=== PATIENT | male | born 1955 | race Caucasian/White ===

== ENCOUNTER → 2017-12-20 | Outpatient (CLI) | payer OTHER ==
[~2017-12-20] MED LIST: AMAN100 PO; AMOCLA875 PO; AMOX500 PO; BETH25 PO; CEPH250A PO; CEPH500 PO; CHLO50 PO; CHOL10002 PO; CIPR500 PO; Crutch1 EACH MISC; DIVA500EC; DIVA500ER PO; DOXY100 PO; ERYT1OIN BOTHEYES; ESCI10 PO; FAMO20 PO; FERR325 PO; FURO20 PO; FURO40 PO; HYDACE5 PO; LEVSOD25 PO; LISI5 PO; MAGCIT300 PO; MAGOXI400 PO; METF500 PO; Norco 5-325 Ta1 EACH PO; OLAN10 PO; OLAN10A MM; OLAN2.5; OLAN7.5 PO; PALI6TA PO; POLY17UD PO; POTA10T; POTA10T PO; POTA20PAC PO; POTCHL20ER PO; PRAV20 PO; Percocet 5-3251 EACH PO; ROSU10TA; ROSU10TA PO; SERT25; SERT50 PO; SULTRIDS PO; TAMS.4ER PO; WARF10 PO; XARELTO10 MG; XARELTO10 MG PO; Zestril PO; [UNRECOGNIZED DRUG - CODE]
[2017-12-20 11:23] LABS: Hematocrit 42.4 % (37.0-53.0); Mean Corpuscular HGB 29.5 pg (26.0-34.0); Mean Corpuscular Volume 89 fL (80-100); Mean Platelet Volume 10.2 fL (9.1-12.4); Platelet Count 225 K/mm3 (150-400); RDW Coefficient Variation 14.1 % (11.7-14.2); RDW Standard Deviation 45.7 fL (35.1-46.3); Red Blood Cell Count 4.75 M/mm3 (4.30-5.90); White Blood Cell Count 6.72 K/mm3 (4.00-11.30)
[2017-12-20 12:47] LABS: Anion Gap 9 mmol/L (6-16); Blood Urea Nitrogen 13 mg/dL (8-24); Bun/Creatinine Ratio 19.6 (12.0-20.0); CO2, Blood 24 mmol/L (21-32); Calcium, Blood 8.5 mg/dL (8.5-10.1); Chloride, Blood 109 mmol/L (98-108); Creatinine, Blood 0.66 mg/dL (0.60-1.20); Glomerular Filtration Rate >60 (60-); Glucose, Blood 151 mg/dL (70-99); Potassium, Blood 3.7 mmol/L (3.5-5.5); Sodium, Blood 142 mmol/L (136-145)
== END | disposition home or self-care (01) ==
LOC: LAB UVN 11:06 → EDSTATUS 12:01
PROVIDERS: Family Medicine
DX: R06.02 Shortness of breath (principal)
CPT/HCPCS: 80048; 85027

== ENCOUNTER 2018-05-09 18:51 | Inpatient (IN) | payer OTHER ==
[~2018-05-09] VITALS: Ht 172.7 cm; Wt 117.7 kg
[~2018-05-09 18:51] MED LIST changes: -METF500 PO; +METF850 PO
[2018-05-09 19:21] LABS: BASOPHILS ABSOLUTE AUTO 0.04 K/mm3 (0.00-0.23); BASOPHILS PERCENT AUTO 0 % (0-2); EOSINOPHILS ABSOLUTE AUTO 0.07 K/mm3 (0.00-0.68); EOSINOPHILS PERCENT AUTO 1 % (0-6); Hematocrit 32.9 % (37.0-53.0); Hemoglobin 10.9 g/dL (13.5-17.5); IMMATURE GRAN ABSOLUTE AUTO 0.03 K/mm3 (0.00-0.10); IMMATURE GRAN PERCENT AUTO 0 % (0-1); LYMPHOCYTES ABSOLUTE AUTO 1.79 K/mm3 (0.84-5.20); LYMPHOCYTES PERCENT AUTO 17 % (21-46); MONOCYTES ABSOLUTE AUTO 0.97 K/mm3 (0.16-1.47); MONOCYTES PERCENT AUTO 9 % (4-13); Mean Corpuscular HGB 29.7 pg (26.0-34.0); Mean Corpuscular HGB Conc 33.1 g/dL (31.5-36.5); Mean Corpuscular Volume 90 fL (80-100); Mean Platelet Volume 9.6 fL (9.1-12.4); NEUTROPHILS PERCENT AUTO 72 % (41-73); Platelet Count 250 K/mm3 (150-400); RDW Coefficient Variation 14.1 % (11.7-14.2); RDW Standard Deviation 46.1 fL (35.1-46.3); Red Blood Cell Count 3.67 M/mm3 (4.30-5.90)
[2018-05-09 19:34] LABS: International Normalized Ratio 1.19; Prothrombin Time Results 12.1 Sec (9.7-11.5)
[2018-05-09 19:36] LABS: Albumin, Blood 2.3 g/dL (3.4-5.0); Albumin/Globulin Ratio 0.5 (0.8-1.8); Bilirubin, Total 0.4 mg/dL (0.1-1.0); Calcium, Blood 7.8 mg/dL (8.5-10.1); Creatinine, Blood 1.42 mg/dL (0.60-1.20); Globulin, Blood 4.7 g/dL (2.2-4.0); Potassium, Blood 3.6 mmol/L (3.5-5.5)
[2018-05-10 05:24] LABS: Hematocrit 33.3 % (37.0-53.0); Hemoglobin 11.1 g/dL (13.5-17.5); Mean Corpuscular HGB 29.8 pg (26.0-34.0); Mean Corpuscular HGB Conc 33.3 g/dL (31.5-36.5); Mean Corpuscular Volume 90 fL (80-100); Mean Platelet Volume 9.3 fL (9.1-12.4); Platelet Count 244 K/mm3 (150-400); RDW Coefficient Variation 14.2 % (11.7-14.2); RDW Standard Deviation 46.4 fL (35.1-46.3); Red Blood Cell Count 3.72 M/mm3 (4.30-5.90); White Blood Cell Count 9.17 K/mm3 (4.00-11.30)
[2018-05-10 05:54] LABS: Albumin, Blood 2.3 g/dL (3.4-5.0); Albumin/Globulin Ratio 0.5 (0.8-1.8); Bilirubin, Total 0.5 mg/dL (0.1-1.0); Bun/Creatinine Ratio 12.2 (12.0-20.0); Calcium, Blood 8.1 mg/dL (8.5-10.1); Creatinine, Blood 1.47 mg/dL (0.60-1.20); Globulin, Blood 4.7 g/dL (2.2-4.0); Potassium, Blood 3.8 mmol/L (3.5-5.5)
[2018-05-10 07:50] LABS: Source, Urine Catheter
[2018-05-10 08:15] LABS: Appearance, Urine Hazy (Clear); Bilirubin, Urine Neg (Neg); Blood, Urine 5+ (Neg); Color, Urine Yellow (P-Yellow); Glucose Qualitative, Urine Neg (Neg); Ketones, Urine Neg (Neg); Leukocyte Esterase, Urine 3+ (Neg); Nitrite, Urine Neg (Neg); Protein, Urine 1+ (Neg); Specific Gravity, Urine 1.005 (1.003-1.022); Urobilinogen, Urine NORM (Normal)
[2018-05-10 08:26] LABS: Bacteria Mod /hpf; Squamous Epithelial Cells Rare /hpf (Few); White Blood Cells, Urine 50-100 /hpf (0-5)
[2018-05-11 04:16] LABS: BASOPHILS ABSOLUTE AUTO 0.05 K/mm3 (0.00-0.23); BASOPHILS PERCENT AUTO 1 % (0-2); EOSINOPHILS ABSOLUTE AUTO 0.29 K/mm3 (0.00-0.68); EOSINOPHILS PERCENT AUTO 3 % (0-6); Hemoglobin 11.7 g/dL (13.5-17.5); IMMATURE GRAN ABSOLUTE AUTO 0.03 K/mm3 (0.00-0.10); IMMATURE GRAN PERCENT AUTO 0 % (0-1); LYMPHOCYTES ABSOLUTE AUTO 2.68 K/mm3 (0.84-5.20); LYMPHOCYTES PERCENT AUTO 25 % (21-46); MONOCYTES ABSOLUTE AUTO 0.89 K/mm3 (0.16-1.47); MONOCYTES PERCENT AUTO 8 % (4-13); Mean Corpuscular HGB Conc 32.5 g/dL (31.5-36.5); Mean Corpuscular Volume 89 fL (80-100); Mean Platelet Volume 9.7 fL (9.1-12.4); NEUTROPHILS ABSOLUTE AUTO 6.76 K/mm3 (1.96-9.15); NEUTROPHILS PERCENT AUTO 63 % (41-73); Platelet Count 271 K/mm3 (150-400); RDW Standard Deviation 45.6 fL (35.1-46.3); Red Blood Cell Count 4.03 M/mm3 (4.30-5.90)
[2018-05-11 04:40] LABS: Albumin, Blood 2.4 g/dL (3.4-5.0); Anion Gap 9 mmol/L (6-16); Blood Urea Nitrogen 19 mg/dL (8-24); Bun/Creatinine Ratio 15.7 (12.0-20.0); CO2, Blood 27 mmol/L (21-32); Calcium, Blood 8.3 mg/dL (8.5-10.1); Chloride, Blood 104 mmol/L (98-108); Creatinine, Blood 1.21 mg/dL (0.60-1.20); Glomerular Filtration Rate >60 (60-); Glucose, Blood 113 mg/dL (70-99); Phosphorus, Blood 3.8 mg/dL (2.5-4.9); Potassium, Blood 3.3 mmol/L (3.5-5.5); Sodium, Blood 140 mmol/L (136-145)
[2018-05-11 04:53] LABS: Percent Saturation 34.7 % (20.0-50.0)
[2018-05-12 05:04] LABS: Albumin, Blood 2.4 g/dL (3.4-5.0); Anion Gap 9 mmol/L (6-16); Blood Urea Nitrogen 22 mg/dL (8-24); Bun/Creatinine Ratio 18.5 (12.0-20.0); CO2, Blood 26 mmol/L (21-32); Calcium, Blood 8.4 mg/dL (8.5-10.1); Chloride, Blood 103 mmol/L (98-108); Creatinine, Blood 1.19 mg/dL (0.60-1.20); Glomerular Filtration Rate >60 (60-); Glucose, Blood 126 mg/dL (70-99); Phosphorus, Blood 3.3 mg/dL (2.5-4.9); Potassium, Blood 3.2 mmol/L (3.5-5.5); Sodium, Blood 138 mmol/L (136-145)
[2018-05-13] MEDS ORDERED: GABA300 PO (10:10)
[2018-05-13] MEDS ORDERED: TAMS.4ER PO (10:11)
[2018-05-13] MEDS ORDERED: TRAM50 PO (10:11)
[2018-05-13] MEDS ORDERED: Amoxicillin500 MG PO (10:12)
[2018-05-13] MEDS ORDERED: Acidophilus La100 GM PO (10:12)
== END 2018-05-13 12:24 | DRG 871 ==
LOC: ER 18:51 → MEDS 21:44 → EDPENDDIS 05-13 10:01 → ENPENDDIS 05-13 10:01 → MEDS 05-13 12:24
PROVIDERS: Emergency Medicine; Family Medicine; Internal Medicine
DX: A41.9 Sepsis, unspecified organism (principal); G92 Toxic encephalopathy; N39.0 Urinary tract infection, site not specified; N13.1 Hydronephrosis with ureteral stricture, not elsewhere classified; N17.9 Acute kidney failure, unspecified; D63.8 Anemia in other chronic diseases classified elsewhere; E87.6 Hypokalemia; F20.9 Schizophrenia, unspecified; R65.20 Severe sepsis without septic shock; H10.9 Unspecified conjunctivitis; J44.9 Chronic obstructive pulmonary disease, unspecified; E11.65 Type 2 diabetes mellitus with hyperglycemia; E03.9 Hypothyroidism, unspecified; E11.40 Type 2 diabetes mellitus with diabetic neuropathy, unspecified; F31.9 Bipolar disorder, unspecified; R09.02 Hypoxemia; E66.9 Obesity, unspecified; Z86.718 Personal history of other venous thrombosis and embolism; Z79.01 Long term (current) use of anticoagulants; Z79.84 Long term (current) use of oral hypoglycemic drugs; Z79.899 Other long term (current) drug therapy; Z87.891 Personal history of nicotine dependence
CPT/HCPCS: 36415; 71045; 76770; 80053; 80069; 81001; 82607; 82728; 82746; 82947; 83540; 83550; 83605; 84132; 85025; 85027; 85610; 85730; 87086; 93005; 93010; 94760; 96365; 99285-25; J0696; J0713; J1650; J7120

== ENCOUNTER 2018-07-04 23:25 | Inpatient (IN) | payer OTHER ==
[~2018-07-04] VITALS: Ht 172.7 cm; Wt 117.8 kg
[~2018-07-04 23:25] MED LIST changes: +ACET325 PO; +Acidophilus La100 GM PO; +Amoxicillin500 MG PO; +Cipro500 MG PO; +GABA300 PO; +TRAM50 PO; +Tylenol325 MG PO
[2018-07-04 23:48] LABS: BASOPHILS ABSOLUTE AUTO 0.03 K/mm3 (0.00-0.23); BASOPHILS PERCENT AUTO 0 % (0-2); EOSINOPHILS PERCENT AUTO 0 % (0-6); Hemoglobin 13.4 g/dL (13.5-17.5); IMMATURE GRAN ABSOLUTE AUTO 0.03 K/mm3 (0.00-0.10); IMMATURE GRAN PERCENT AUTO 0 % (0-1); LYMPHOCYTES ABSOLUTE AUTO 0.99 K/mm3 (0.84-5.20); LYMPHOCYTES PERCENT AUTO 11 % (21-46); MONOCYTES ABSOLUTE AUTO 0.44 K/mm3 (0.16-1.47); MONOCYTES PERCENT AUTO 5 % (4-13); Mean Corpuscular HGB Conc 33.5 g/dL (31.5-36.5); Mean Corpuscular Volume 90 fL (80-100); Mean Platelet Volume 9.8 fL (9.1-12.4); NEUTROPHILS PERCENT AUTO 84 % (41-73); Platelet Count 136 K/mm3 (150-400); RDW Coefficient Variation 14.9 % (11.7-14.2); RDW Standard Deviation 49.6 fL (35.1-46.3); Red Blood Cell Count 4.47 M/mm3 (4.30-5.90); White Blood Cell Count 9.19 K/mm3 (4.00-11.30)
[2018-07-05 00:04] LABS: Alanine Aminotransfer (ALT/SGP 22 U/L (12-78); Albumin, Blood 2.4 g/dL (3.4-5.0); Albumin/Globulin Ratio 0.5 (0.8-1.8); Alk Phos 73 U/L (50-136); Anion Gap 11 mmol/L (6-16); Aspartate Aminotrans (AST/SGOT 42 U/L (12-37); Bilirubin, Total 0.5 mg/dL (0.1-1.0); Blood Urea Nitrogen 10 mg/dL (8-24); Bun/Creatinine Ratio 11.8 (12.0-20.0); CO2, Blood 21 mmol/L (21-32); Calcium, Blood 7.7 mg/dL (8.5-10.1); Chloride, Blood 105 mmol/L (98-108); Creatinine, Blood 0.85 mg/dL (0.60-1.20); Globulin, Blood 4.7 g/dL (2.2-4.0); Glomerular Filtration Rate >60 (60-); Glucose, Blood 230 mg/dL (70-99); Potassium, Blood 3.8 mmol/L (3.5-5.5); Sodium, Blood 137 mmol/L (136-145); Total Protein, Blood 7.1 g/dL (6.4-8.2)
[2018-07-05 01:19] LABS: Source, Urine Catheter
[2018-07-05 01:21] LABS: Bilirubin, Urine Neg (Neg); Blood, Urine 5+ (Neg); Glucose Qualitative, Urine Neg (Neg); Ketones, Urine Neg (Neg); Leukocyte Esterase, Urine 1+ (Neg); Nitrite, Urine Neg (Neg); Protein, Urine Neg (Neg); Specific Gravity, Urine 1.005 (1.003-1.022); Urobilinogen, Urine NORM (Normal)
[2018-07-05] MEDS ORDERED: Ceftriaxone1 G2 IM (01:23)
[2018-07-05 01:34] LABS: Appearance, Urine Hazy (Clear); Color, Urine Other (P-Yellow)
[2018-07-05 01:36] LABS: Bacteria Few /hpf; Red Blood Cells, Urine 50-100 /hpf (0-2); Squamous Epithelial Cells Not Seen /hpf (Few)
[2018-07-05 04:36] LABS: U Amphetamine Screen Not Detected; U Barbituate Screen Not Detected; U Benzodiazapine Screen Not Detected; U Buprenorphine Screen Not Detected; U Cannabinoids Screen Not Detected; U Cocaine Screen Not Detected; U Methadone Screen Not Detected; U Methamphetamine Screen Not Detected; U Opiates Screen Not Detected; U Oxycodone Screen Not Detected; U Phencyclidine Screen Not Detected; U Propoxyphene Screen Not Detected
[2018-07-05 11:51] LABS: Hematocrit 38.8 % (37.0-53.0); Hemoglobin 12.4 g/dL (13.5-17.5); Mean Corpuscular Volume 91 fL (80-100); Mean Platelet Volume 9.6 fL (9.1-12.4); Platelet Count 118 K/mm3 (150-400); RDW Coefficient Variation 15.1 % (11.7-14.2); RDW Standard Deviation 50.5 fL (35.1-46.3); Red Blood Cell Count 4.27 M/mm3 (4.30-5.90); White Blood Cell Count 7.42 K/mm3 (4.00-11.30)
[2018-07-05 12:21] LABS: Alanine Aminotransfer (ALT/SGP 21 U/L (12-78); Albumin, Blood 2.2 g/dL (3.4-5.0); Albumin/Globulin Ratio 0.5 (0.8-1.8); Alk Phos 60 U/L (50-136); Anion Gap 10 mmol/L (6-16); Aspartate Aminotrans (AST/SGOT 30 U/L (12-37); Bilirubin, Total 0.4 mg/dL (0.1-1.0); Blood Urea Nitrogen 10 mg/dL (8-24); Bun/Creatinine Ratio 11.5 (12.0-20.0); CO2, Blood 22 mmol/L (21-32); Calcium, Blood 7.3 mg/dL (8.5-10.1); Chloride, Blood 108 mmol/L (98-108); Creatinine, Blood 0.87 mg/dL (0.60-1.20); Globulin, Blood 4.1 g/dL (2.2-4.0); Glomerular Filtration Rate >60 (60-); Glucose, Blood 124 mg/dL (70-99); Potassium, Blood 2.8 mmol/L (3.5-5.5); Sodium, Blood 140 mmol/L (136-145); Total Protein, Blood 6.3 g/dL (6.4-8.2)
[2018-07-06 04:09] LABS: BASOPHILS ABSOLUTE AUTO 0.05 K/mm3 (0.00-0.23); BASOPHILS PERCENT AUTO 1 % (0-2); EOSINOPHILS ABSOLUTE AUTO 0.15 K/mm3 (0.00-0.68); EOSINOPHILS PERCENT AUTO 2 % (0-6); Hematocrit 38.3 % (37.0-53.0); Hemoglobin 12.5 g/dL (13.5-17.5); IMMATURE GRAN ABSOLUTE AUTO 0.04 K/mm3 (0.00-0.10); IMMATURE GRAN PERCENT AUTO 1 % (0-1); LYMPHOCYTES ABSOLUTE AUTO 1.79 K/mm3 (0.84-5.20); LYMPHOCYTES PERCENT AUTO 26 % (21-46); MONOCYTES ABSOLUTE AUTO 0.64 K/mm3 (0.16-1.47); MONOCYTES PERCENT AUTO 9 % (4-13); Mean Corpuscular HGB 29.3 pg (26.0-34.0); Mean Corpuscular HGB Conc 32.6 g/dL (31.5-36.5); Mean Corpuscular Volume 90 fL (80-100); Mean Platelet Volume 10.3 fL (9.1-12.4); NEUTROPHILS ABSOLUTE AUTO 4.23 K/mm3 (1.96-9.15); NEUTROPHILS PERCENT AUTO 61 % (41-73); Platelet Count 150 K/mm3 (150-400); RDW Coefficient Variation 14.9 % (11.7-14.2); RDW Standard Deviation 49.3 fL (35.1-46.3); Red Blood Cell Count 4.26 M/mm3 (4.30-5.90)
[2018-07-06 04:31] LABS: Anion Gap 9 mmol/L (6-16); Blood Urea Nitrogen 13 mg/dL (8-24); Bun/Creatinine Ratio 16.5 (12.0-20.0); CO2, Blood 23 mmol/L (21-32); Calcium, Blood 8.1 mg/dL (8.5-10.1); Chloride, Blood 109 mmol/L (98-108); Creatinine, Blood 0.79 mg/dL (0.60-1.20); Glomerular Filtration Rate >60 (60-); Glucose, Blood 122 mg/dL (70-99); Potassium, Blood 3.2 mmol/L (3.5-5.5); Sodium, Blood 141 mmol/L (136-145)
[2018-07-07 05:02] LABS: Anion Gap 10 mmol/L (6-16); Blood Urea Nitrogen 12 mg/dL (8-24); Bun/Creatinine Ratio 16.1 (12.0-20.0); CO2, Blood 22 mmol/L (21-32); Calcium, Blood 8.1 mg/dL (8.5-10.1); Chloride, Blood 107 mmol/L (98-108); Creatinine, Blood 0.74 mg/dL (0.60-1.20); Glomerular Filtration Rate >60 (60-); Glucose, Blood 106 mg/dL (70-99); Potassium, Blood 3.5 mmol/L (3.5-5.5); Sodium, Blood 139 mmol/L (136-145)
[2018-07-07] MEDS ORDERED: SYNTHROID/LEVOTHROID PO (09:47)
[2018-07-07] MEDS ORDERED: Pedi-Dri 100,0060 GM TOP (09:47)
[2018-07-07] MEDS ORDERED: MERREM1 GM IV (09:48)
[2018-07-07] MEDS ORDERED: Bactrim Ds Tab1 EACH PO (11:22)
== END 2018-07-07 15:18 | DRG 698 ==
LOC: ER 23:25 → ICUW 23:29 → MEDS 07-05 00:42 → PCU 07-05 14:35 → MEDS 07-06 10:47 → ENPENDDIS 07-07 09:00 → MEDS 07-07 15:18
PROVIDERS: Emergency Medicine; Hospitalist; Internal Medicine
DX: T83.518A Infection and inflammatory reaction due to other urinary catheter, initial encounter (principal); G92 Toxic encephalopathy; R65.20 Severe sepsis without septic shock; A41.51 Sepsis due to Escherichia coli [E. coli]; N39.0 Urinary tract infection, site not specified; E86.0 Dehydration; F31.9 Bipolar disorder, unspecified; I10 Essential (primary) hypertension; I73.9 Peripheral vascular disease, unspecified; H10.9 Unspecified conjunctivitis; E78.5 Hyperlipidemia, unspecified; J44.9 Chronic obstructive pulmonary disease, unspecified; Z99.3 Dependence on wheelchair; E11.40 Type 2 diabetes mellitus with diabetic neuropathy, unspecified; E03.9 Hypothyroidism, unspecified; Z86.718 Personal history of other venous thrombosis and embolism; Z79.01 Long term (current) use of anticoagulants; B96.4 Proteus (mirabilis) (morganii) as the cause of diseases classified elsewhere
CPT/HCPCS: 36415; 51702; 71045; 80048; 80053; 81001; 82330; 82947; 83605; 83735; 85025; 85027; 87086; 96361; 96374; 99285-25; J0696; J1650; J2185; J3480; J7030; J7040; J7050

== ENCOUNTER → 2018-09-16 | Outpatient (CLI) | payer OTHER ==
[~2018-09-16] MED LIST changes: +Bactrim Ds Tab1 EACH PO; +Ceftriaxone1 G2 IM; +MERREM1 GM IV; +Pedi-Dri 100,0060 GM TOP; +SYNTHROID/LEVOTHROID PO
[2018-09-16 12:21] LABS: BASOPHILS ABSOLUTE AUTO 0.04 K/mm3 (0.00-0.23); BASOPHILS PERCENT AUTO 1 % (0-2); EOSINOPHILS ABSOLUTE AUTO 0.48 K/mm3 (0.00-0.68); EOSINOPHILS PERCENT AUTO 6 % (0-6); Hematocrit 39.1 % (37.0-53.0); Hemoglobin 12.9 g/dL (13.5-17.5); IMMATURE GRAN ABSOLUTE AUTO 0.03 K/mm3 (0.00-0.10); IMMATURE GRAN PERCENT AUTO 0 % (0-1); LYMPHOCYTES ABSOLUTE AUTO 2.26 K/mm3 (0.84-5.20); LYMPHOCYTES PERCENT AUTO 26 % (21-46); MONOCYTES ABSOLUTE AUTO 0.59 K/mm3 (0.16-1.47); MONOCYTES PERCENT AUTO 7 % (4-13); Mean Corpuscular HGB 29.7 pg (26.0-34.0); Mean Corpuscular Volume 90 fL (80-100); Mean Platelet Volume 9.8 fL (9.1-12.4); NEUTROPHILS PERCENT AUTO 61 % (41-73); Platelet Count 269 K/mm3 (150-400); RDW Coefficient Variation 14.8 % (11.7-14.2); RDW Standard Deviation 49.2 fL (35.1-46.3); Red Blood Cell Count 4.34 M/mm3 (4.30-5.90)
[2018-09-16 12:35] LABS: Anion Gap 9 mmol/L (6-16); Blood Urea Nitrogen 10 mg/dL (8-24); Bun/Creatinine Ratio 14.9 (12.0-20.0); CO2, Blood 26 mmol/L (21-32); Chloride, Blood 103 mmol/L (98-108); Creatinine, Blood 0.67 mg/dL (0.60-1.20); Glomerular Filtration Rate >60 (60-); Glucose, Blood 172 mg/dL (70-99); Potassium, Blood 3.5 mmol/L (3.5-5.5); Sodium, Blood 138 mmol/L (136-145)
== END | disposition home or self-care (01) ==
LOC: EDSTATUS 10:44 → LAB UVN 12:04
PROVIDERS: Family Medicine
DX: L08.9 Local infection of the skin and subcutaneous tissue, unspecified (principal)
CPT/HCPCS: 80048; 85025; 87070; 87205

== ENCOUNTER → 2018-09-19 | Outpatient (CLI) | payer OTHER | END | disposition home or self-care (01) | LOC: LAB UVN 08:12 → EDSTATUS 10:47 | DX: S71.109A Unspecified open wound, unspecified thigh, initial encounter (principal); L02.415 Cutaneous abscess of right lower limb; B95.62 Methicillin resistant Staphylococcus aureus infection as the cause of diseases classified elsewhere; X58.XXXA Exposure to other specified factors, initial encounter | CPT/HCPCS: 87070; 87077; 87147; 87186; 87205 ==

== ENCOUNTER → 2018-10-12 | Outpatient (CLI) | payer OTHER ==
[2018-10-12 14:14] LABS: Source, Urine Clean Catch
[2018-10-12 14:31] LABS: Hematocrit 41.3 % (37.0-53.0); Hemoglobin 13.5 g/dL (13.5-17.5); Mean Corpuscular HGB 29.4 pg (26.0-34.0); Mean Corpuscular HGB Conc 32.7 g/dL (31.5-36.5); Mean Corpuscular Volume 90 fL (80-100); Mean Platelet Volume 10.3 fL (9.1-12.4); Platelet Count 227 K/mm3 (150-400); RDW Coefficient Variation 14.8 % (11.7-14.2); RDW Standard Deviation 49.4 fL (35.1-46.3); Red Blood Cell Count 4.59 M/mm3 (4.30-5.90); White Blood Cell Count 7.82 K/mm3 (4.00-11.30)
[2018-10-12 14:33] LABS: Bilirubin, Urine Neg (Neg); Blood, Urine 5+ (Neg); Glucose Qualitative, Urine 1+ (Neg); Ketones, Urine Neg (Neg); Leukocyte Esterase, Urine 3+ (Neg); Nitrite, Urine Neg (Neg); Protein, Urine 2+ (Neg); Specific Gravity, Urine 1.015 (1.003-1.022); Urobilinogen, Urine 2+ (Normal)
[2018-10-12 14:58] LABS: Appearance, Urine Cloudy (Clear); Color, Urine Yellow (P-Yellow)
[2018-10-12 15:13] LABS: White Blood Cells, Urine TNTC /hpf (0-5)
[2018-10-12 15:14] LABS: Bacteria Many /hpf; Squamous Epithelial Cells Not Seen /hpf (Few)
== END | disposition home or self-care (01) ==
LOC: EDSTATUS 10:56 → LAB UVN 14:13
PROVIDERS: Family Medicine
DX: J44.9 Chronic obstructive pulmonary disease, unspecified (principal); G93.41 Metabolic encephalopathy; N39.0 Urinary tract infection, site not specified; Z86.718 Personal history of other venous thrombosis and embolism
CPT/HCPCS: 81001; 85027; 87077; 87086; 87186

== ENCOUNTER → 2019-01-23 | Outpatient (CLI) | payer OTHER ==
[~2019-01-23] MED LIST changes: +AMOX875 PO; +BISA10S PR; +GABA400 PO; +METF500 PO; +NITR100CA PO; +OLAN10A; +SYNTHROID25 MCG PO; +XARELTO20 MG PO
[2019-01-23 12:54] LABS: Source, Urine Catheter
[2019-01-23 13:06] LABS: Hemoglobin 13.7 g/dL (13.5-17.5); Mean Corpuscular HGB 27.8 pg (26.0-34.0); Mean Corpuscular HGB Conc 31.9 g/dL (31.5-36.5); Mean Corpuscular Volume 87 fL (80-100); Mean Platelet Volume 9.8 fL (9.1-12.4); Platelet Count 277 K/mm3 (150-400); RDW Coefficient Variation 15.4 % (11.7-14.2); RDW Standard Deviation 49.2 fL (35.1-46.3); Red Blood Cell Count 4.92 M/mm3 (4.30-5.90); White Blood Cell Count 7.47 K/mm3 (4.00-11.30)
[2019-01-23 13:07] LABS: Anion Gap 9 mmol/L (6-16); Blood Urea Nitrogen 14 mg/dL (8-24); Bun/Creatinine Ratio 23.5 (12.0-20.0); CO2, Blood 26 mmol/L (21-32); Calcium, Blood 8.7 mg/dL (8.5-10.1); Chloride, Blood 102 mmol/L (98-108); Glomerular Filtration Rate >60 (60-); Glucose, Blood 251 mg/dL (70-99); Potassium, Blood 3.5 mmol/L (3.5-5.5); Sodium, Blood 137 mmol/L (136-145)
[2019-01-23 13:14] LABS: Bilirubin, Urine Neg (Neg); Blood, Urine 5+ (Neg); Glucose Qualitative, Urine 3+ (Neg); Ketones, Urine 1+ (Neg); Leukocyte Esterase, Urine 3+ (Neg); Nitrite, Urine Pos (Neg); Protein, Urine 3+ (Neg); Specific Gravity, Urine 1.025 (1.003-1.022); Urobilinogen, Urine 1+ (Normal)
[2019-01-23 13:52] LABS: Appearance, Urine Turbid (Clear); Color, Urine Yellow (P-Yellow)
[2019-01-23 13:53] LABS: Squamous Epithelial Cells Many /hpf (Few)
[2019-01-23 13:54] LABS: White Blood Cells, Urine TNTC /hpf (0-5)
[2019-01-23 13:55] LABS: Bacteria Mod /hpf
== END ==
LOC: EDSTATUS 10:22 → LAB UVN 12:49
DX: N39.0 Urinary tract infection, site not specified (principal); I73.89 Other specified peripheral vascular diseases; J44.9 Chronic obstructive pulmonary disease, unspecified; G93.41 Metabolic encephalopathy
CPT/HCPCS: 80048; 81001; 85027; 87077; 87086; 87147; 87186

== ENCOUNTER → 2019-02-21 | Outpatient (CLI) | payer OTHER | END | disposition home or self-care (01) | LOC: EDSTATUS 13:18 → LAB UVN 15:19 | DX: S91.302A Unspecified open wound, left foot, initial encounter (principal) | CPT/HCPCS: 87070; 87075; 87077; 87147; 87186; 87205 ==

== ENCOUNTER → 2019-03-08 | Outpatient (CLI) | payer OTHER ==
[2019-03-08 21:24] LABS: Bilirubin, Urine Neg (Neg); Blood, Urine 4+ (Neg); Glucose Qualitative, Urine 1+ (Neg); Ketones, Urine 1+ (Neg); Leukocyte Esterase, Urine 3+ (Neg); Nitrite, Urine Neg (Neg); Protein, Urine 3+ (Neg); Specific Gravity, Urine 1.025 (1.003-1.022); Urobilinogen, Urine NORM (Normal)
[2019-03-08 21:35] LABS: Appearance, Urine Turbid (Clear); Bacteria Many /hpf; Calcium Oxalate Crystals Few /hpf; Color, Urine Yellow (P-Yellow); Squamous Epithelial Cells Rare /hpf (Few); White Blood Cells, Urine TNTC /hpf (0-5)
== END | disposition home or self-care (01) ==
LOC: EDSTATUS 14:54 → LAB UVN 20:20
DX: N39.0 Urinary tract infection, site not specified (principal)
CPT/HCPCS: 81001; 87077; 87086; 87186

== ENCOUNTER 2019-03-11 07:35 | Inpatient (IN) | payer OTHER ==
[~2019-03-11] VITALS: Ht 172.7 cm; Wt 116.3 kg
[~2019-03-11 07:35] MED LIST changes: -AMOX875 PO; -BISA10S PR; -GABA400 PO; -METF500 PO; -NITR100CA PO; -OLAN10A; -SYNTHROID25 MCG PO; -XARELTO20 MG PO
[2019-03-11] MEDS ORDERED: TAMS.4ER PO (08:05)
[2019-03-11] MEDS ORDERED: FURO20 PO (08:05)
[2019-03-11] MEDS ORDERED: METF500 PO (08:06)
[2019-03-11] MEDS ORDERED: OLAN10A (08:06)
[2019-03-11] MEDS ORDERED: XARELTO20 MG PO (08:07)
[2019-03-11] MEDS ORDERED: OLAN7.5 PO (08:07)
[2019-03-11] MEDS ORDERED: SYNTHROID25 MCG PO (08:07)
[2019-03-11] MEDS ORDERED: Bactrim Ds Tab1 EACH PO (08:08)
[2019-03-11] MEDS ORDERED: NITR100CA PO (08:08)
[2019-03-11] MEDS ORDERED: ACET325 PO (08:09)
[2019-03-11] MEDS ORDERED: GABA400 PO (08:09)
[2019-03-11] MEDS ORDERED: BISA10S PR (08:09)
[2019-03-11] MEDS ORDERED: Norco 5-325 Ta1 EACH PO (08:10)
[2019-03-11 08:23] LABS: BASOPHILS ABSOLUTE AUTO 0.09 K/mm3 (0.00-0.23); BASOPHILS PERCENT AUTO 1 % (0-2); EOSINOPHILS ABSOLUTE AUTO 0.29 K/mm3 (0.00-0.68); EOSINOPHILS PERCENT AUTO 2 % (0-6); Hemoglobin 13.8 g/dL (13.5-17.5); IMMATURE GRAN ABSOLUTE AUTO 0.09 K/mm3 (0.00-0.10); IMMATURE GRAN PERCENT AUTO 1 % (0-1); LYMPHOCYTES ABSOLUTE AUTO 2.93 K/mm3 (0.84-5.20); LYMPHOCYTES PERCENT AUTO 18 % (21-46); MONOCYTES ABSOLUTE AUTO 1.16 K/mm3 (0.16-1.47); MONOCYTES PERCENT AUTO 7 % (4-13); Mean Corpuscular HGB Conc 32.1 g/dL (31.5-36.5); Mean Corpuscular Volume 87 fL (80-100); Mean Platelet Volume 9.2 fL (9.1-12.4); NEUTROPHILS ABSOLUTE AUTO 11.78 K/mm3 (1.96-9.15); NEUTROPHILS PERCENT AUTO 72 % (41-73); Platelet Count 278 K/mm3 (150-400); RDW Standard Deviation 51.1 fL (35.1-46.3); Red Blood Cell Count 4.93 M/mm3 (4.30-5.90); White Blood Cell Count 16.34 K/mm3 (4.00-11.30)
[2019-03-11 08:46] LABS: Alanine Aminotransfer (ALT/SGP 23 U/L (12-78); Albumin, Blood 2.9 g/dL (3.4-5.0); Albumin/Globulin Ratio 0.6 (0.8-1.8); Alk Phos 75 U/L (50-136); Anion Gap 7 mmol/L (6-16); Aspartate Aminotrans (AST/SGOT 19 U/L (12-37); Bilirubin, Total 0.7 mg/dL (0.1-1.0); Blood Urea Nitrogen 9 mg/dL (8-24); Bun/Creatinine Ratio 14.5 (12.0-20.0); CO2, Blood 27 mmol/L (21-32); Calcium, Blood 8.5 mg/dL (8.5-10.1); Chloride, Blood 104 mmol/L (98-108); Creatinine, Blood 0.62 mg/dL (0.60-1.20); Globulin, Blood 4.8 g/dL (2.2-4.0); Glomerular Filtration Rate >60 (60-); Glucose, Blood 156 mg/dL (70-99); Potassium, Blood 3.4 mmol/L (3.5-5.5); Sodium, Blood 138 mmol/L (136-145); Total Protein, Blood 7.7 g/dL (6.4-8.2)
[2019-03-11 08:49] LABS: Source, Urine Catheter
[2019-03-11 08:55] LABS: Bilirubin, Urine Neg (Neg); Blood, Urine 4+ (Neg); Color, Urine Yellow (P-Yellow); Glucose Qualitative, Urine 3+ (Neg); Ketones, Urine 1+ (Neg); Leukocyte Esterase, Urine 3+ (Neg); Nitrite, Urine Pos (Neg); Protein, Urine 3+ (Neg); Specific Gravity, Urine 1.025 (1.003-1.022); Urobilinogen, Urine NORM (Normal)
[2019-03-11 09:00] LABS: Appearance, Urine Turbid (Clear)
[2019-03-11 09:02] LABS: White Blood Cells, Urine TNTC /hpf (0-5)
[2019-03-11 09:04] LABS: Bacteria Many /hpf; Squamous Epithelial Cells Rare /hpf (Few)
[2019-03-11 09:05] LABS: Calcium Oxalate Crystals Rare /hpf
[2019-03-11 14:58] LABS: Source, Urine Catheter
[2019-03-11 15:00] LABS: Bilirubin, Urine Neg (Neg); Blood, Urine 4+ (Neg); Glucose Qualitative, Urine 3+ (Neg); Ketones, Urine 1+ (Neg); Leukocyte Esterase, Urine 3+ (Neg); Nitrite, Urine Pos (Neg); Protein, Urine 3+ (Neg); Specific Gravity, Urine 1.025 (1.003-1.022); Urobilinogen, Urine NORM (Normal)
[2019-03-11 15:22] LABS: Appearance, Urine Turbid (Clear); Color, Urine Yellow (P-Yellow)
[2019-03-11 15:28] LABS: White Blood Cells, Urine TNTC /hpf (0-5)
[2019-03-11 15:31] LABS: Bacteria Many /hpf; Calcium Oxalate Crystals Rare /hpf; Squamous Epithelial Cells Not Seen /hpf (Few)
--- NOTE | 2019-03-11 16:33 | NUR ---
Pt resting in bed anxious with staff and some fear. Slow approach to patient. He is limited in what he can express. He dienies startle respones or auditiory disturbance at this time. Opens eyes but poor eye contact. He statess he is very tactile sensitive. large abdomen taught scrotum looks irritated and swollen. Pt wanted dinner fed patient and casual conversation, he was able to discuss a bit of what is on the news. Ate all his dinner and enjoyed his food. Asked if I could call his sister he said to wait. Will see if he has advance directive or polst. repositioned pt and it was very stressfull appears spasms and discomfort unable to describe to me. assessed ability to use call light not able requested adaptive call light.
--- NOTE | 2019-03-11 18:28 | NUR ---
SHIFT SUMMARY PATIENT WAS IRRITABLE WHEN HE ARRIVED TO THE FLOOR. CURRENTLY HE IS DOING MUCH BETTER. PATIENT IS PLEASANT AT THIS TIME. HE IS UNABLE TO MOVE HIS EXREMITIES AND GETS MINOR MOVEMENTS. MOST MOVEMENT IS PAINFUL AT THIS TIME. HE IS CURRENTLY LIVING AT [facility]. TAKES HIS PILLS WHOLE WITH WATER. WHEN ENTERING THE ROOM ALERT THE PATIENT VERBALLY HE DOES STARTLE EASILY. TOUCH TO ANY PART OF HIS BODY PATIENT REPORTS PAINFUL. AT THIS TIME WILL CONTINUE TO MONITOR. HE HAS A TELEMETRY BOX ON, NO ACUTE CONCERNS.
--- NOTE | 2019-03-12 04:18 | NUR ---
SHIFT SUMMARY: 63 Y/O MALE RESTED COMFORTABLY ALL SHIFT. THIS NURSE OFFERED TO ASSESS AND APPLY DRESSINGS TO BILATERAL LOWER HEELS WITH PATIENTS DECLINING OFFER AND STATED, "I WILL LET NURSE DO THIS TASK IN THE AM, BUT NOT TONIGHT". PT TALKING CALM VOICE, ALERT TO PERSON ONLY. PTS EAST DRAINING DARK CLOUDY YELLOW FLUID. PT REQUIRES ASSISTANCE WITH ALL ADLS TO INCLUDE HOLDING WATER GLASS TO DRINK. PT MAINTAINED IN CONTACT PRECAUTIONS, BED ALARM APPLIED, BED LOW POSITION, CALL LIGHT AT SIDE.
--- NOTE | 2019-03-12 06:20 | NUR ---
PT DECLINED TO HAVE THIS NURSE ASSESS BILATERAL HEELS AND APPLY DRESSINGS. PT STATED, "I WANT TO WAIT AND LET THE DAY SHIFT NURSE TO IT". THIS NURSE REVIEWED WITH PATIENT THE NEED TO HAVE THIS ASSESSMENT AND DRESSING CHANGE PERFORMED TODAY IMMEDIATELY WITH ACKNOWLEDGEMENT NOTED.
[2019-03-12 06:21] LABS: BASOPHILS ABSOLUTE AUTO 0.07 K/mm3 (0.00-0.23); BASOPHILS PERCENT AUTO 1 % (0-2); EOSINOPHILS ABSOLUTE AUTO 0.32 K/mm3 (0.00-0.68); EOSINOPHILS PERCENT AUTO 3 % (0-6); Hematocrit 38.6 % (37.0-53.0); Hemoglobin 12.3 g/dL (13.5-17.5); IMMATURE GRAN ABSOLUTE AUTO 0.05 K/mm3 (0.00-0.10); IMMATURE GRAN PERCENT AUTO 0 % (0-1); LYMPHOCYTES ABSOLUTE AUTO 2.76 K/mm3 (0.84-5.20); LYMPHOCYTES PERCENT AUTO 24 % (21-46); MONOCYTES ABSOLUTE AUTO 0.71 K/mm3 (0.16-1.47); MONOCYTES PERCENT AUTO 6 % (4-13); Mean Corpuscular HGB 27.7 pg (26.0-34.0); Mean Corpuscular HGB Conc 31.9 g/dL (31.5-36.5); Mean Corpuscular Volume 87 fL (80-100); Mean Platelet Volume 9.3 fL (9.1-12.4); NEUTROPHILS ABSOLUTE AUTO 7.57 K/mm3 (1.96-9.15); NEUTROPHILS PERCENT AUTO 66 % (41-73); Platelet Count 263 K/mm3 (150-400); Red Blood Cell Count 4.44 M/mm3 (4.30-5.90); White Blood Cell Count 11.48 K/mm3 (4.00-11.30)
[2019-03-12 06:38] LABS: Albumin, Blood 2.5 g/dL (3.4-5.0); Anion Gap 8 mmol/L (6-16); Blood Urea Nitrogen 10 mg/dL (8-24); Bun/Creatinine Ratio 16.9 (12.0-20.0); CO2, Blood 24 mmol/L (21-32); Calcium, Blood 8.1 mg/dL (8.5-10.1); Chloride, Blood 107 mmol/L (98-108); Creatinine, Blood 0.59 mg/dL (0.60-1.20); Glomerular Filtration Rate >60 (60-); Glucose, Blood 136 mg/dL (70-99); Phosphorus, Blood 2.9 mg/dL (2.5-4.9); Potassium, Blood 3.5 mmol/L (3.5-5.5); Sodium, Blood 139 mmol/L (136-145)
--- NOTE | 2019-03-12 17:45 | NUR ---
SUMMARY PT IS ORIENTED TO NAME & PLACE, REASON FOR HOSP. HE HAS HX SCHIZOPHRENIA & BIPOLAR D/O, @ X'S MAKES RELIGIOUSITY STATEMENTS. HE STATE LIVES @ [facility], STATE W/C BOUND @ BASELINE, UNABLE TO AMBULATE OR BR WT. MOVES ALL EXTREMITIES WEAKLY, STATE N/T. HE HAS R HEEL PRESSURE ULCER, L THIGH PRESSURE ULCER, PHOTOS & WOUND CARE TODAY. HE HAS REFUSED TO ALLOW REPOSITIONING, WILL NOT LET US TURN HIM OFF L SIDE. HE HAS ALLOWED BEDBATH, HEEL PROTECTORS & BATH BLANKET BETWEEN LEGS HOWEVER RESISTANT/RELUCTANTLY. EDUCATED ON SBD & NEED FOR REPOSITIONING, STATE HE WILL REPOSITION HIMSELF CONTINUES TO REFUSE US TO REPOSITION. CHR EAST CATH MYA CLEAR URINE WITH CLOUDS, DR HOWELL CHANGE IV ANTIBX TODAY. PRN NORCO GIVEN THIS AM FOR BLE PAIN CONTROL. VSS. EMPLOYMENT TRAINER NOTIFIED PT REFUSING REPOSITIONING.
--- NOTE | 2019-03-12 20:02 | NUR ---
Took report and assumed cAre of patient. NOC V/S TAKEN AND PT FOUND TO HAVE TEMP 101.5 AND HYPERVENTILATING WITH RR OF 32. CALLED RT TO LOOK AT HIM. PATIENT REFUSES TO REPOSITION. GAVE MEDS PER EMAR AND WILL NOTIFY PROVIDER. RECHECK V/S Q2HRS X3
--- NOTE | 2019-03-13 16:14 | NUR ---
SUMMARY P0 IS A/O X2, FLAT AFFECT, HX SCHIZ/BIPOLAR D/O. W/C BOUND @ BASELINE. HE CONTINUES TO REFUSE Q2 TURNS, BECOMES ANGRY WITH ATTEMPTS TO REPOSITION. INSIST ON LAYING L SIDED. RE-EDUCATED PT ON RISKS OF FURTHER SBD. HEEL PROTECTORS ON. DR & FUEL TRUCK DRIVER AWARE. TALKED TO [facility] RN WHO STATED THAT THIS IS PT NORM REFUSING REPOSITIONING. STATE THAT WOUND CARE R HEEL & L THIGH ARE DONE EVERY OTHER DAY. DRSFredo CDI @ THIS TIME, CHANGE DUE TOMORROW. PT IS @ X'S DIAPHORETIC HOWVER NO FEVER TODAY. STATE BLE PAIN PRN NORCO & TYLENOL GIVEN FOR RELIEF TODAY.
--- NOTE | 2019-03-14 04:17 | NUR ---
SHIFT SUMMARY: 63 Y/O MALE RESTED COMFORTABLY. PT DECLINES TO ALLOW STAFF TO REPOSITION FROM LEFT SIDE DESPITE ENCOURAGEMENT FROM NURSING STAFF. PT WEARING BILATERAL HEEL PROTECTORS, ALERT AND ORIENTED X 3, REQUIRES ASSISTANCE WITH ALL ADLS TO INCLUDE ASSISTANCE WITH DRINKING WATER VIA STRAW. EAST DRAINING CLEAR YELLOW FLUID, DENIES PAIN OR NAUSEA, PLEASANT AND COOPERATIVE WITH STAFF DURING ALL CARE RENDERED, BED ALARM APPLIED, BED LOW POSITION, CALL LIGHT AT SIDE.
--- NOTE | 2019-03-14 19:28 | NUR ---
DISCHARGE NOTE SCHITZOPHRENIA, POLYURIA REPORTED TO DR. HOWELL. IV FLUIDS STOPPED. REFUSING CARE AT TIMES. DENIES ANY PAIN. UP MOST OF SHIFT WATCHING T.V. FEEDER. [id number].
--- NOTE | 2019-03-15 04:07 | NUR ---
SHIFT SUMMARY: 63 Y/O OBESE MALE RESTED COMFORTABLY ALL SHIFT. PT REMAINS ON CONTACT ISOLATION FOR ESBL IN URINE, EAST CATHETER DRAINING CLEAR YELLOW FLUID, DENIES PAIN OR NAUSEA, PT STILL REQUIRES ASSISTANCE WITH ALL ADLS/IADLS TO INCLUDE ASSISTING WITH DRINKING WATER FROM GLASS (UNABLE TO HOLD GLASS). PT TELEMETRY NSR WITH HEART RATE 63 PER STUDIO MODEL MAURI. PT ALERT AND ORIENTED X 4, TALKING LOW MONOTONE VOICE. PT BED ALARM APPLIED, BED LOW POSITION, CALL LIGHT AT SIDE.
--- NOTE | 2019-03-15 05:55 | NUR ---
PT NOTED BE DIAPHRETIC, GLUCOSE 141, TYLENOL 650MG PO GIVEN, GOWEN CHANGED, ALERT AND ORIENTED X 4.
[2019-03-15] MEDS ORDERED: AMOX875 PO (10:54)
--- NOTE | 2019-03-15 13:36 | NUR ---
DISCHARGE NOTE PT LEFT WITH [facility] TO GO BACK TO [facility]. REPORT CALLED TO MONICO AT THIS FACILITY. PT HAD PIV REMOVED, AT LUNCH, GOT LUNCHTIME DOSE OF IV ABX PRIOR TO LEAVING. CATHETER INTACT AND DRAINING. R HEEL DRESSING CHANGED AND PICS TAKEN OF WOUNDS.
--- NOTE | 2019-03-15 17:37 | NUR ---
Palliative Spiritual Care note: Mr. Bolaños was very weak and sleepy. He was unable to stay awake for conversation/encouragement. He allowed me to pray for him at bedside, but said very little. Pt being discharged shortly.
== END 2019-03-15 13:35 | DRG 700 ==
LOC: ER 07:35 → MEDS 10:15 → ERHOLD 10:15 → MEDS 13:58 → ENPENDDIS 03-15 09:46 → MEDS 03-15 13:35
PROVIDERS: Physician Assistant; ADMIT Internal Medicine
DX: T83.511A Infection and inflammatory reaction due to indwelling urethral catheter, initial encounter (principal); N39.0 Urinary tract infection, site not specified; F31.9 Bipolar disorder, unspecified; Z79.4 Long term (current) use of insulin; M25.519 Pain in unspecified shoulder; B96.20 Unspecified Escherichia coli [E. coli] as the cause of diseases classified elsewhere; Z16.29 Resistance to other single specified antibiotic; L89.619 Pressure ulcer of right heel, unspecified stage; E11.621 Type 2 diabetes mellitus with foot ulcer; B95.2 Enterococcus as the cause of diseases classified elsewhere; Z16.12 Extended spectrum beta lactamase (ESBL) resistance; E11.40 Type 2 diabetes mellitus with diabetic neuropathy, unspecified; I10 Essential (primary) hypertension; F20.9 Schizophrenia, unspecified; E03.9 Hypothyroidism, unspecified; E78.5 Hyperlipidemia, unspecified; E11.51 Type 2 diabetes mellitus with diabetic peripheral angiopathy without gangrene; J44.9 Chronic obstructive pulmonary disease, unspecified; Z79.84 Long term (current) use of oral hypoglycemic drugs; Z79.899 Other long term (current) drug therapy; Z86.718 Personal history of other venous thrombosis and embolism; Z79.01 Long term (current) use of anticoagulants
CPT/HCPCS: 36415; 51702; 71046; 73030; 80053; 80069; 81001; 82947; 83605; 83735; 85025; 87040; 87077; 87086; 87186; 93005; 93010; 94760; 96365-59; 96367-59; 99285-25; A9270; A9270-GY; J0290; J0456; J0696; J2185; J7030; J7050

== ENCOUNTER → 2019-03-11 | Outpatient (CLI) | payer OTHER ==
[2019-03-11 05:25] LABS: BASOPHILS PERCENT AUTO 1 % (0-2); EOSINOPHILS ABSOLUTE AUTO 0.22 K/mm3 (0.00-0.68); EOSINOPHILS PERCENT AUTO 1 % (0-6); Hemoglobin 13.8 g/dL (13.5-17.5); IMMATURE GRAN ABSOLUTE AUTO 0.08 K/mm3 (0.00-0.10); IMMATURE GRAN PERCENT AUTO 1 % (0-1); LYMPHOCYTES ABSOLUTE AUTO 3.64 K/mm3 (0.84-5.20); LYMPHOCYTES PERCENT AUTO 21 % (21-46); MONOCYTES ABSOLUTE AUTO 1.22 K/mm3 (0.16-1.47); MONOCYTES PERCENT AUTO 7 % (4-13); Mean Corpuscular HGB 27.9 pg (26.0-34.0); Mean Corpuscular HGB Conc 32.1 g/dL (31.5-36.5); Mean Platelet Volume 9.8 fL (9.1-12.4); NEUTROPHILS ABSOLUTE AUTO 12.42 K/mm3 (1.96-9.15); NEUTROPHILS PERCENT AUTO 70 % (41-73); Platelet Count 290 K/mm3 (150-400); RDW Coefficient Variation 16.1 % (11.7-14.2); RDW Standard Deviation 50.9 fL (35.1-46.3); Red Blood Cell Count 4.94 M/mm3 (4.30-5.90); White Blood Cell Count 17.68 K/mm3 (4.00-11.30)
[2019-03-11 05:26] LABS: Mean Corpuscular Volume 87 fL (80-100)
[2019-03-11 05:40] LABS: Anion Gap 9 mmol/L (6-16); Blood Urea Nitrogen 10 mg/dL (8-24); Bun/Creatinine Ratio 15.4 (12.0-20.0); CO2, Blood 22 mmol/L (21-32); Calcium, Blood 8.5 mg/dL (8.5-10.1); Chloride, Blood 103 mmol/L (98-108); Creatinine, Blood 0.65 mg/dL (0.60-1.20); Glomerular Filtration Rate >60 (60-); Glucose, Blood 166 mg/dL (70-99); Potassium, Blood 3.4 mmol/L (3.5-5.5); Sodium, Blood 134 mmol/L (136-145)
== END | disposition home or self-care (01) ==
LOC: LAB UVN 05:20 → EDSTATUS 14:56
DX: N39.0 Urinary tract infection, site not specified (principal)
CPT/HCPCS: 80048; 85025

== ENCOUNTER → 2019-11-14 | Outpatient (CLI) | payer OTHER ==
[~2019-11-14] MED LIST changes: +AMOX875 PO; +BISA10S PR; +GABA400 PO; +METF500 PO; +NITR100CA PO; +OLAN10A; +SYNTHROID25 MCG PO; +XARELTO20 MG PO
== END | disposition home or self-care (01) ==
LOC: LAB UVN 07:54 → EDSTATUS 13:04
DX: E11.42 Type 2 diabetes mellitus with diabetic polyneuropathy (principal)
CPT/HCPCS: 36415; 83036

== ENCOUNTER → 2020-01-14 | Outpatient (CLI) | payer OTHER ==
[2020-01-14 07:55] LABS: Hematocrit 42.8 % (37.0-53.0); Hemoglobin 13.8 g/dL (13.5-17.5); Mean Corpuscular HGB 28.7 pg (26.0-34.0); Mean Corpuscular HGB Conc 32.2 g/dL (31.5-36.5); Mean Corpuscular Volume 89 fL (80-100); Platelet Count 355 K/mm3 (150-400); RDW Coefficient Variation 16.2 % (11.7-14.2); Red Blood Cell Count 4.81 M/mm3 (4.30-5.90); White Blood Cell Count 15.81 K/mm3 (4.00-11.30)
[2020-01-14 08:04] LABS: Anion Gap 10 mmol/L (6-16); Blood Urea Nitrogen 16 mg/dL (8-24); Bun/Creatinine Ratio 22.1 (12.0-20.0); CO2, Blood 28 mmol/L (21-32); Calcium, Blood 8.4 mg/dL (8.5-10.1); Chloride, Blood 97 mmol/L (98-108); Creatinine, Blood 0.72 mg/dL (0.60-1.20); Glomerular Filtration Rate >60 (60-); Glucose, Blood 199 mg/dL (70-99); Potassium, Blood 3.2 mmol/L (3.5-5.5); Sodium, Blood 135 mmol/L (136-145)
== END | disposition home or self-care (01) ==
LOC: LAB UVN 05:15 → EDSTATUS 11:11
PROVIDERS: Nurse Practitioner Adult Health
DX: R06.02 Shortness of breath (principal); R09.89 Other specified symptoms and signs involving the circulatory and respiratory systems; R50.9 Fever, unspecified
CPT/HCPCS: 80048; 85027

== ENCOUNTER → 2020-02-05 | Outpatient (CLI) | payer OTHER | END | disposition home or self-care (01) | LOC: LAB UVN 21:00 | DX: E11.42 Type 2 diabetes mellitus with diabetic polyneuropathy (principal) | CPT/HCPCS: 83036 ==

== ENCOUNTER → 2020-04-30 | Outpatient (CLI) | payer OTHER | END | disposition home or self-care (01) | LOC: LAB UVN 02:42 → EDSTATUS 13:58 | DX: E11.42 Type 2 diabetes mellitus with diabetic polyneuropathy (principal) | CPT/HCPCS: 83036 ==

== ENCOUNTER → 2020-05-30 | Outpatient (CLI) | payer OTHER ==
[2020-05-30 08:55] LABS: BASOPHILS ABSOLUTE AUTO 0.04 K/mm3 (0.00-0.23); BASOPHILS PERCENT AUTO 0 % (0-2); EOSINOPHILS ABSOLUTE AUTO 0.31 K/mm3 (0.00-0.68); EOSINOPHILS PERCENT AUTO 3 % (0-6); Hematocrit 33.8 % (37.0-53.0); Hemoglobin 10.2 g/dL (13.5-17.5); IMMATURE GRAN ABSOLUTE AUTO 0.03 K/mm3 (0.00-0.10); IMMATURE GRAN PERCENT AUTO 0 % (0-1); LYMPHOCYTES ABSOLUTE AUTO 2.55 K/mm3 (0.84-5.20); LYMPHOCYTES PERCENT AUTO 27 % (21-46); MONOCYTES ABSOLUTE AUTO 0.68 K/mm3 (0.16-1.47); MONOCYTES PERCENT AUTO 7 % (4-13); Mean Corpuscular HGB 27.9 pg (26.0-34.0); Mean Corpuscular HGB Conc 30.2 g/dL (31.5-36.5); Mean Corpuscular Volume 93 fL (80-100); Mean Platelet Volume 10.6 fL (9.1-12.4); NEUTROPHILS ABSOLUTE AUTO 5.78 K/mm3 (1.96-9.15); NEUTROPHILS PERCENT AUTO 62 % (41-73); Platelet Count 283 K/mm3 (150-400); RDW Coefficient Variation 15.4 % (11.7-14.2); RDW Standard Deviation 52.6 fL (35.1-46.3); Red Blood Cell Count 3.65 M/mm3 (4.30-5.90); White Blood Cell Count 9.39 K/mm3 (4.00-11.30)
[2020-05-30 09:02] LABS: Alanine Aminotransfer (ALT/SGP 10 U/L (12-78); Albumin, Blood 2.4 g/dL (3.4-5.0); Albumin/Globulin Ratio 0.5 (0.8-1.8); Alk Phos 78 U/L (50-136); Anion Gap 4 mmol/L (6-16); Aspartate Aminotrans (AST/SGOT 11 U/L (12-37); Bilirubin, Total 0.2 mg/dL (0.1-1.0); Blood Urea Nitrogen 20 mg/dL (8-24); CO2, Blood 32 mmol/L (21-32); Calcium, Blood 8.6 mg/dL (8.5-10.1); Chloride, Blood 106 mmol/L (98-108); Creatinine, Blood 0.95 mg/dL (0.60-1.20); Globulin, Blood 5.3 g/dL (2.2-4.0); Glomerular Filtration Rate >60 (60-); Glucose, Blood 76 mg/dL (70-99); Potassium, Blood 3.7 mmol/L (3.5-5.5); Sodium, Blood 142 mmol/L (136-145); Total Protein, Blood 7.7 g/dL (6.4-8.2)
== END | disposition home or self-care (01) ==
LOC: LAB UVN 08:20 → EDSTATUS 15:10
PROVIDERS: Internal Medicine
DX: J44.9 Chronic obstructive pulmonary disease, unspecified (principal)
CPT/HCPCS: 80053; 85025

== ENCOUNTER → 2020-06-03 | Outpatient (CLI) | payer OTHER ==
[2020-06-03 07:21] LABS: Appearance, Urine Hazy (Clear); Bilirubin, Urine Neg (Neg); Blood, Urine 5+ (Neg); Color, Urine Yellow (P-Yellow); Glucose Qualitative, Urine Neg (Neg); Ketones, Urine Neg (Neg); Leukocyte Esterase, Urine 3+ (Neg); Nitrite, Urine Neg (Neg); Protein, Urine 2+ (Neg); Urobilinogen, Urine NORM (Normal)
[2020-06-03 07:27] LABS: BASOPHILS ABSOLUTE AUTO 0.04 K/mm3 (0.00-0.23); BASOPHILS PERCENT AUTO 0 % (0-2); EOSINOPHILS ABSOLUTE AUTO 0.29 K/mm3 (0.00-0.68); EOSINOPHILS PERCENT AUTO 3 % (0-6); Hematocrit 31.8 % (37.0-53.0); Hemoglobin 9.7 g/dL (13.5-17.5); IMMATURE GRAN ABSOLUTE AUTO 0.03 K/mm3 (0.00-0.10); IMMATURE GRAN PERCENT AUTO 0 % (0-1); LYMPHOCYTES ABSOLUTE AUTO 2.57 K/mm3 (0.84-5.20); LYMPHOCYTES PERCENT AUTO 28 % (21-46); MONOCYTES ABSOLUTE AUTO 0.68 K/mm3 (0.16-1.47); MONOCYTES PERCENT AUTO 7 % (4-13); Mean Corpuscular HGB 28.2 pg (26.0-34.0); Mean Corpuscular HGB Conc 30.5 g/dL (31.5-36.5); Mean Corpuscular Volume 92 fL (80-100); Mean Platelet Volume 10.4 fL (9.1-12.4); NEUTROPHILS ABSOLUTE AUTO 5.72 K/mm3 (1.96-9.15); NEUTROPHILS PERCENT AUTO 61 % (41-73); Platelet Count 244 K/mm3 (150-400); RDW Coefficient Variation 15.5 % (11.7-14.2); RDW Standard Deviation 52.5 fL (35.1-46.3); Red Blood Cell Count 3.44 M/mm3 (4.30-5.90); White Blood Cell Count 9.33 K/mm3 (4.00-11.30)
[2020-06-03 07:29] LABS: Red Blood Cells, Urine 25-50 /hpf (0-2); White Blood Cells, Urine 50-100 /hpf (0-5)
[2020-06-03 07:30] LABS: Amorphous Light (0-Heavy); Bacteria Mod /hpf; Squamous Epithelial Cells Not Seen /hpf (Few)
[2020-06-03 07:32] LABS: Anion Gap 4 mmol/L (6-16); Blood Urea Nitrogen 22 mg/dL (8-24); CO2, Blood 31 mmol/L (21-32); Calcium, Blood 8.9 mg/dL (8.5-10.1); Chloride, Blood 107 mmol/L (98-108); Glomerular Filtration Rate >60 (60-); Glucose, Blood 83 mg/dL (70-99); Potassium, Blood 3.8 mmol/L (3.5-5.5); Sodium, Blood 142 mmol/L (136-145)
== END | disposition home or self-care (01) ==
LOC: LAB UVN 07:06 → EDSTATUS 15:11
PROVIDERS: Family Medicine
DX: R50.9 Fever, unspecified (principal)
CPT/HCPCS: 80048; 81001; 85025; 87070; 87075; 87086; 87205

== ENCOUNTER 2020-07-03 08:41 | Day surgery (SDC) | payer OTHER | END 2020-07-03 23:38 | disposition home or self-care (01) | LOC: WOUND 08:41 | DX: I96 Gangrene, not elsewhere classified (principal); L89.314 Pressure ulcer of right buttock, stage 4; L89.892 Pressure ulcer of other site, stage 2; S81.812A Laceration without foreign body, left lower leg, initial encounter; E11.622 Type 2 diabetes mellitus with other skin ulcer; L97.122 Non-pressure chronic ulcer of left thigh with fat layer exposed; I12.0 Hypertensive chronic kidney disease with stage 5 chronic kidney disease or end stage renal disease; E11.22 Type 2 diabetes mellitus with diabetic chronic kidney disease; N18.6 End stage renal disease; E11.52 Type 2 diabetes mellitus with diabetic peripheral angiopathy with gangrene; E78.5 Hyperlipidemia, unspecified; E03.9 Hypothyroidism, unspecified; F20.9 Schizophrenia, unspecified; E11.36 Type 2 diabetes mellitus with diabetic cataract; H26.9 Unspecified cataract; J44.9 Chronic obstructive pulmonary disease, unspecified; I25.10 Atherosclerotic heart disease of native coronary artery without angina pectoris; Z86.718 Personal history of other venous thrombosis and embolism; Z51.5 Encounter for palliative care; Z79.84 Long term (current) use of oral hypoglycemic drugs; Z79.899 Other long term (current) drug therapy; X58.XXXA Exposure to other specified factors, initial encounter | CPT/HCPCS: G0463 ==

== ENCOUNTER → 2020-07-04 | Outpatient (CLI) | payer OTHER ==
[2020-07-04 02:58] LABS: BASOPHILS ABSOLUTE AUTO 0.03 K/mm3 (0.00-0.23); BASOPHILS PERCENT AUTO 0 % (0-2); EOSINOPHILS ABSOLUTE AUTO 0.24 K/mm3 (0.00-0.68); EOSINOPHILS PERCENT AUTO 3 % (0-6); Hematocrit 32.3 % (37.0-53.0); Hemoglobin 9.9 g/dL (13.5-17.5); IMMATURE GRAN ABSOLUTE AUTO 0.01 K/mm3 (0.00-0.10); IMMATURE GRAN PERCENT AUTO 0 % (0-1); LYMPHOCYTES ABSOLUTE AUTO 3.19 K/mm3 (0.84-5.20); LYMPHOCYTES PERCENT AUTO 40 % (21-46); MONOCYTES ABSOLUTE AUTO 0.53 K/mm3 (0.16-1.47); MONOCYTES PERCENT AUTO 7 % (4-13); Mean Corpuscular HGB 28.1 pg (26.0-34.0); Mean Corpuscular HGB Conc 30.7 g/dL (31.5-36.5); Mean Corpuscular Volume 92 fL (80-100); Mean Platelet Volume 10.5 fL (9.1-12.4); NEUTROPHILS ABSOLUTE AUTO 4.03 K/mm3 (1.96-9.15); NEUTROPHILS PERCENT AUTO 50 % (41-73); Platelet Count 189 K/mm3 (150-400); RDW Coefficient Variation 15.8 % (11.7-14.2); RDW Standard Deviation 52.9 fL (35.1-46.3); Red Blood Cell Count 3.52 M/mm3 (4.30-5.90); White Blood Cell Count 8.03 K/mm3 (4.00-11.30)
[2020-07-04 03:21] LABS: Albumin, Blood 2.5 g/dL (3.4-5.0); Prealbumin, Blood 11.5 mg/dL (20.0-40.0)
== END | disposition home or self-care (01) ==
LOC: LAB UVN 02:53 → EDSTATUS 11:06
PROVIDERS: Family Medicine
DX: E03.8 Other specified hypothyroidism (principal); I10 Essential (primary) hypertension
CPT/HCPCS: 82040; 84134; 85025

== ENCOUNTER → 2020-07-08 | Outpatient (CLI) | payer OTHER | END | disposition home or self-care (01) | LOC: LAB UVN 07:17 → EDSTATUS 11:07 | DX: E11.42 Type 2 diabetes mellitus with diabetic polyneuropathy (principal) | CPT/HCPCS: 83036 ==

== ENCOUNTER 2020-07-17 00:21 | Day surgery (SDC) | payer OTHER | END 2020-07-17 22:55 | disposition home or self-care (01) | LOC: WOUND 00:21 | DX: E11.621 Type 2 diabetes mellitus with foot ulcer (principal); E11.622 Type 2 diabetes mellitus with other skin ulcer; L89.319 Pressure ulcer of right buttock, unspecified stage; L97.119 Non-pressure chronic ulcer of right thigh with unspecified severity; E78.5 Hyperlipidemia, unspecified; E03.9 Hypothyroidism, unspecified; Z79.899 Other long term (current) drug therapy; Z79.01 Long term (current) use of anticoagulants; Z79.84 Long term (current) use of oral hypoglycemic drugs ==

== ENCOUNTER → 2020-07-23 | Outpatient (CLI) | payer OTHER | END | disposition home or self-care (01) | LOC: LAB UVN 06:28 → EDSTATUS 11:08 | DX: E11.42 Type 2 diabetes mellitus with diabetic polyneuropathy (principal) | CPT/HCPCS: 83036 ==

== ENCOUNTER 2020-07-31 00:22 | Day surgery (SDC) | payer OTHER | END 2020-07-31 23:30 | disposition home or self-care (01) | LOC: WOUND 00:22 | DX: E11.622 Type 2 diabetes mellitus with other skin ulcer (principal); L97.122 Non-pressure chronic ulcer of left thigh with fat layer exposed; I96 Gangrene, not elsewhere classified; L89.314 Pressure ulcer of right buttock, stage 4; E11.52 Type 2 diabetes mellitus with diabetic peripheral angiopathy with gangrene; E11.621 Type 2 diabetes mellitus with foot ulcer; L97.529 Non-pressure chronic ulcer of other part of left foot with unspecified severity; J44.9 Chronic obstructive pulmonary disease, unspecified; I25.10 Atherosclerotic heart disease of native coronary artery without angina pectoris; I12.0 Hypertensive chronic kidney disease with stage 5 chronic kidney disease or end stage renal disease; E11.22 Type 2 diabetes mellitus with diabetic chronic kidney disease; N18.6 End stage renal disease; F20.9 Schizophrenia, unspecified; E78.5 Hyperlipidemia, unspecified; E03.9 Hypothyroidism, unspecified; E11.36 Type 2 diabetes mellitus with diabetic cataract; H26.9 Unspecified cataract; Z86.718 Personal history of other venous thrombosis and embolism; Z79.01 Long term (current) use of anticoagulants; Z79.84 Long term (current) use of oral hypoglycemic drugs; Z79.899 Other long term (current) drug therapy ==

== ENCOUNTER 2020-08-07 00:29 | Day surgery (SDC) | payer OTHER | END 2020-08-07 23:17 | disposition home or self-care (01) | LOC: WOUND 00:29 | DX: E11.622 Type 2 diabetes mellitus with other skin ulcer (principal); L89.313 Pressure ulcer of right buttock, stage 3; E78.5 Hyperlipidemia, unspecified; E03.9 Hypothyroidism, unspecified; L97.112 Non-pressure chronic ulcer of right thigh with fat layer exposed; Z79.899 Other long term (current) drug therapy; Z79.84 Long term (current) use of oral hypoglycemic drugs ==

== ENCOUNTER 2020-08-13 00:30 | Day surgery (SDC) | payer OTHER | END 2020-08-13 23:15 | disposition home or self-care (01) | LOC: WOUND 00:30 | DX: I96 Gangrene, not elsewhere classified (principal); L89.314 Pressure ulcer of right buttock, stage 4; S71.112D Laceration without foreign body, left thigh, subsequent encounter; E11.52 Type 2 diabetes mellitus with diabetic peripheral angiopathy with gangrene; E78.5 Hyperlipidemia, unspecified; E03.9 Hypothyroidism, unspecified; I87.2 Venous insufficiency (chronic) (peripheral); F20.9 Schizophrenia, unspecified; E11.36 Type 2 diabetes mellitus with diabetic cataract; H26.9 Unspecified cataract; J44.9 Chronic obstructive pulmonary disease, unspecified; I25.10 Atherosclerotic heart disease of native coronary artery without angina pectoris; E11.22 Type 2 diabetes mellitus with diabetic chronic kidney disease; N18.6 End stage renal disease; Z86.718 Personal history of other venous thrombosis and embolism; Z79.84 Long term (current) use of oral hypoglycemic drugs; Z79.01 Long term (current) use of anticoagulants; Z79.899 Other long term (current) drug therapy; X58.XXXD Exposure to other specified factors, subsequent encounter | CPT/HCPCS: G0463 ==

== ENCOUNTER → 2020-10-08 | Outpatient (CLI) | payer OTHER ==
[2020-10-08 13:18] LABS: Anion Gap 6 mmol/L (6-16); Blood Urea Nitrogen 19 mg/dL (8-24); Bun/Creatinine Ratio 24.9 (12.0-20.0); CO2, Blood 29 mmol/L (21-32); Calcium, Blood 8.5 mg/dL (8.5-10.1); Chloride, Blood 102 mmol/L (98-108); Creatinine, Blood 0.76 mg/dL (0.60-1.20); Glomerular Filtration Rate >60 (60-); Glucose, Blood 79 mg/dL (70-99); Potassium, Blood 3.7 mmol/L (3.5-5.5); Sodium, Blood 137 mmol/L (136-145)
[2020-10-08 13:29] LABS: BASOPHILS ABSOLUTE AUTO 0.04 K/mm3 (0.00-0.23); BASOPHILS PERCENT AUTO 0 % (0-2); EOSINOPHILS PERCENT AUTO 3 % (0-6); Hematocrit 29.9 % (37.0-53.0); Hemoglobin 9.8 g/dL (13.5-17.5); IMMATURE GRAN ABSOLUTE AUTO 0.02 K/mm3 (0.00-0.10); IMMATURE GRAN PERCENT AUTO 0 % (0-1); LYMPHOCYTES ABSOLUTE AUTO 2.37 K/mm3 (0.84-5.20); LYMPHOCYTES PERCENT AUTO 26 % (21-46); MONOCYTES ABSOLUTE AUTO 0.86 K/mm3 (0.16-1.47); MONOCYTES PERCENT AUTO 10 % (4-13); Mean Corpuscular HGB 29.4 pg (26.0-34.0); Mean Corpuscular HGB Conc 32.8 g/dL (31.5-36.5); Mean Corpuscular Volume 90 fL (80-100); Mean Platelet Volume 11.5 fL (9.1-12.4); NEUTROPHILS ABSOLUTE AUTO 5.38 K/mm3 (1.96-9.15); NEUTROPHILS PERCENT AUTO 60 % (41-73); Platelet Count 241 K/mm3 (150-400); RDW Coefficient Variation 15.5 % (11.7-14.2); RDW Standard Deviation 51.5 fL (35.1-46.3); Red Blood Cell Count 3.33 M/mm3 (4.30-5.90); White Blood Cell Count 8.97 K/mm3 (4.00-11.30)
== END | disposition home or self-care (01) ==
LOC: LAB UVN 12:58 → EDSTATUS 13:28
PROVIDERS: Family Medicine
DX: D72.829 Elevated white blood cell count, unspecified (principal)
CPT/HCPCS: 80048; 85025

== ENCOUNTER → 2020-10-17 | Outpatient (CLI) | payer OTHER | END | disposition home or self-care (01) | LOC: LAB UVN 10:00 → EDSTATUS 13:29 | DX: L89.319 Pressure ulcer of right buttock, unspecified stage (principal) | CPT/HCPCS: 87070; 87075; 87076; 87077; 87185; 87186; 87205 ==

== ENCOUNTER → 2020-12-17 | Outpatient (CLI) | payer OTHER | END | disposition home or self-care (01) | LOC: EDSTATUS 09:00 → LAB UVN 11:30 | DX: L89.95 Pressure ulcer of unspecified site, unstageable (principal); L08.9 Local infection of the skin and subcutaneous tissue, unspecified | CPT/HCPCS: 87070; 87075; 87077; 87186; 87205 ==

== ENCOUNTER → 2021-01-06 | Outpatient (CLI) | payer OTHER | END | disposition home or self-care (01) | LOC: EDSTATUS 14:24 → LAB UVN 23:10 | DX: E11.42 Type 2 diabetes mellitus with diabetic polyneuropathy (principal) | CPT/HCPCS: 83036 ==

== ENCOUNTER → 2021-02-16 | Outpatient (CLI) | payer OTHER ==
[~2021-02-16] MED LIST changes: +BACL20 PO; +CEFTRIAXON1 GM/50 M1 IV; +ELIQUIS5 M2 PO; +FENTANYL1 EA20 TD; +Prozac20 MG PO; +Senna8.6 MG PO; +VISBIOME 112.51 EACH PO
== END ==
LOC: EDSTATUS 10:28 → LAB UVN 15:16
DX: L89.95 Pressure ulcer of unspecified site, unstageable (principal); Z86.718 Personal history of other venous thrombosis and embolism
CPT/HCPCS: 87070; 87075; 87205

== ENCOUNTER → 2021-04-01 | Outpatient (CLI) | payer OTHER | END | disposition home or self-care (01) | LOC: EDSTATUS 11:16 → LAB UVN 15:41 | DX: E11.42 Type 2 diabetes mellitus with diabetic polyneuropathy (principal) | CPT/HCPCS: 83036 ==

== ENCOUNTER → 2021-04-04 | Outpatient (CLI) | payer OTHER ==
[2021-04-04 14:55] LABS: Hematocrit 36.3 % (37.0-53.0); Hemoglobin 11.5 g/dL (13.5-17.5); Mean Corpuscular HGB Conc 31.7 g/dL (31.5-36.5); Mean Corpuscular Volume 92 fL (80-100); Mean Platelet Volume 9.9 fL (9.1-12.4); Platelet Count 271 K/mm3 (150-400); RDW Coefficient Variation 15.3 % (11.7-14.2); Red Blood Cell Count 3.96 M/mm3 (4.30-5.90); White Blood Cell Count 8.01 K/mm3 (4.00-11.30)
[2021-04-04 15:08] LABS: Anion Gap 2 mmol/L (6-16); Blood Urea Nitrogen 31 mg/dL (8-24); Bun/Creatinine Ratio 30.4 (12.0-20.0); CO2, Blood 32 mmol/L (21-32); Calcium, Blood 9.1 mg/dL (8.5-10.1); Chloride, Blood 106 mmol/L (98-108); Creatinine, Blood 1.02 mg/dL (0.60-1.20); Glomerular Filtration Rate >60 (60-); Glucose, Blood 173 mg/dL (70-99); Potassium, Blood 3.6 mmol/L (3.5-5.5); Sodium, Blood 140 mmol/L (136-145)
== END | disposition home or self-care (01) ==
LOC: EDSTATUS 11:17 → LAB UVN 13:55
PROVIDERS: Internal Medicine
DX: J44.9 Chronic obstructive pulmonary disease, unspecified (principal)
CPT/HCPCS: 80048; 83880; 85027

== ENCOUNTER → 2021-04-19 | Outpatient (CLI) | payer OTHER ==
[2021-04-19 11:42] LABS: Source, Urine Catheter
[2021-04-19 11:50] LABS: Appearance, Urine Hazy (Clear); Bilirubin, Urine Neg (Neg); Blood, Urine 5+ (Neg); Color, Urine Yellow (P-Yellow); Glucose Qualitative, Urine 1+ (Neg); Ketones, Urine Neg (Neg); Leukocyte Esterase, Urine 3+ (Neg); Nitrite, Urine Neg (Neg); Protein, Urine 3+ (Neg); Urobilinogen, Urine NORM (Normal)
[2021-04-19 12:07] LABS: Red Blood Cells, Urine 50-100 /hpf (0-2); Squamous Epithelial Cells Few /hpf (Few); White Blood Cells, Urine 25-50 /hpf (0-5)
[2021-04-19 12:08] LABS: Amorphous Light (0-Heavy); Bacteria Few /hpf; Mucus Mod (0-Heavy); Renal Epithelial Few /hpf (0-Rare)
[2021-04-19 19:39] LABS: BASOPHILS ABSOLUTE AUTO 0.06 K/mm3 (0.00-0.23); BASOPHILS PERCENT AUTO 0 % (0-2); EOSINOPHILS ABSOLUTE AUTO 0.14 K/mm3 (0.00-0.68); EOSINOPHILS PERCENT AUTO 1 % (0-6); Hematocrit 29.2 % (37.0-53.0); Hemoglobin 9.2 g/dL (13.5-17.5); IMMATURE GRAN ABSOLUTE AUTO 0.08 K/mm3 (0.00-0.10); IMMATURE GRAN PERCENT AUTO 1 % (0-1); LYMPHOCYTES ABSOLUTE AUTO 2.02 K/mm3 (0.84-5.20); LYMPHOCYTES PERCENT AUTO 14 % (21-46); MONOCYTES ABSOLUTE AUTO 1.25 K/mm3 (0.16-1.47); MONOCYTES PERCENT AUTO 9 % (4-13); Mean Corpuscular HGB Conc 31.5 g/dL (31.5-36.5); Mean Corpuscular Volume 89 fL (80-100); Mean Platelet Volume 10.7 fL (9.1-12.4); NEUTROPHILS PERCENT AUTO 76 % (41-73); Platelet Count 218 K/mm3 (150-400); RDW Standard Deviation 49.3 fL (35.1-46.3); Red Blood Cell Count 3.28 M/mm3 (4.30-5.90); White Blood Cell Count 14.65 K/mm3 (4.00-11.30)
[2021-04-19 19:55] LABS: Bun/Creatinine Ratio 24.6 (12.0-20.0); Calcium, Blood 8.3 mg/dL (8.5-10.1); Creatinine, Blood 1.26 mg/dL (0.60-1.20); Potassium, Blood 3.7 mmol/L (3.5-5.5)
== END | disposition home or self-care (01) ==
LOC: LAB UVN 11:15 → EDSTATUS 11:19
PROVIDERS: Internal Medicine
DX: N39.0 Urinary tract infection, site not specified (principal); I10 Essential (primary) hypertension; L89.95 Pressure ulcer of unspecified site, unstageable
CPT/HCPCS: 80048; 81001; 85025; 87077; 87086; 87186

== ENCOUNTER 2021-04-22 11:34 | Inpatient (IN) | payer OTHER ==
[~2021-04-22] VITALS: Ht 177.8 cm; Wt 102.1 kg
[~2021-04-22 11:34] MED LIST changes: -BACL20 PO; -CEFTRIAXON1 GM/50 M1 IV; -ELIQUIS5 M2 PO; -FENTANYL1 EA20 TD; -Prozac20 MG PO; -Senna8.6 MG PO; -VISBIOME 112.51 EACH PO; -XARELTO20 MG PO
[2021-04-22 12:16] LABS: BASOPHILS ABSOLUTE AUTO 0.05 K/mm3 (0.00-0.23); BASOPHILS PERCENT AUTO 0 % (0-2); EOSINOPHILS ABSOLUTE AUTO 0.35 K/mm3 (0.00-0.68); EOSINOPHILS PERCENT AUTO 3 % (0-6); Hematocrit 31.9 % (37.0-53.0); Hemoglobin 9.6 g/dL (13.5-17.5); IMMATURE GRAN ABSOLUTE AUTO 0.05 K/mm3 (0.00-0.10); IMMATURE GRAN PERCENT AUTO 0 % (0-1); LYMPHOCYTES ABSOLUTE AUTO 2.08 K/mm3 (0.84-5.20); LYMPHOCYTES PERCENT AUTO 19 % (21-46); MONOCYTES ABSOLUTE AUTO 0.87 K/mm3 (0.16-1.47); MONOCYTES PERCENT AUTO 8 % (4-13); Mean Corpuscular HGB 27.9 pg (26.0-34.0); Mean Corpuscular HGB Conc 30.1 g/dL (31.5-36.5); Mean Corpuscular Volume 93 fL (80-100); Mean Platelet Volume 9.9 fL (9.1-12.4); NEUTROPHILS ABSOLUTE AUTO 7.84 K/mm3 (1.96-9.15); NEUTROPHILS PERCENT AUTO 70 % (41-73); Platelet Count 330 K/mm3 (150-400); RDW Coefficient Variation 14.6 % (11.7-14.2); RDW Standard Deviation 49.6 fL (35.1-46.3); Red Blood Cell Count 3.44 M/mm3 (4.30-5.90); White Blood Cell Count 11.24 K/mm3 (4.00-11.30)
[2021-04-22 12:35] LABS: Alanine Aminotransfer (ALT/SGP 46 U/L (12-78); Albumin, Blood 1.9 g/dL (3.4-5.0); Albumin/Globulin Ratio 0.3 (0.8-1.8); Alk Phos 122 U/L (50-136); Anion Gap 4 mmol/L (6-16); Aspartate Aminotrans (AST/SGOT 47 U/L (12-37); Bilirubin, Total 0.2 mg/dL (0.1-1.0); Blood Urea Nitrogen 36 mg/dL (8-24); Bun/Creatinine Ratio 37.6 (12.0-20.0); CO2, Blood 29 mmol/L (21-32); Calcium, Blood 9.3 mg/dL (8.5-10.1); Chloride, Blood 102 mmol/L (98-108); Creatinine, Blood 0.96 mg/dL (0.60-1.20); Globulin, Blood 6.5 g/dL (2.2-4.0); Glomerular Filtration Rate >60 (60-); Glucose, Blood 116 mg/dL (70-99); Potassium, Blood 4.4 mmol/L (3.5-5.5); Sodium, Blood 135 mmol/L (136-145); Total Protein, Blood 8.4 g/dL (6.4-8.2); Troponin I <0.015 ng/mL (0.000-0.040)
[2021-04-22 13:15] LABS: Source, Urine Catheter
[2021-04-22 13:24] LABS: Appearance, Urine Hazy (Clear); Bilirubin, Urine Neg (Neg); Blood, Urine 5+ (Neg); Color, Urine Yellow (P-Yellow); Glucose Qualitative, Urine Neg (Neg); Ketones, Urine Neg (Neg); Leukocyte Esterase, Urine 3+ (Neg); Nitrite, Urine Neg (Neg); Protein, Urine 3+ (Neg); Urobilinogen, Urine NORM (Normal)
[2021-04-22 13:51] LABS: Bacteria Many /hpf; Red Blood Cells, Urine TNTC /hpf (0-2); Squamous Epithelial Cells Rare /hpf (Few); White Blood Cells, Urine 25-50 /hpf (0-5)
[2021-04-22] MEDS ORDERED: Prozac20 MG PO (14:03)
[2021-04-22] MEDS ORDERED: FENTANYL1 EA20 TD (14:05)
[2021-04-22 14:08] LABS: SARS-Cov-2 (COVID-19) PCR, MMC NEGATIVE (NEGATIVE)
[2021-04-22 20:51] LABS: Adenovirus Not Detected (NOT DETECT); Bordetella pertussis Not Detected (NOT DETECT); Chlamydophila pneumoniae Not Detected (NOT DETECT); Coronavirus 229E Not Detected (NOT DETECT); Coronavirus HKU1 Not Detected (NOT DETECT); Coronavirus NL63 Not Detected (NOT DETECT); Coronavirus OC43 Not Detected (NOT DETECT); Human Metapneumovirus Not Detected (NOT DETECT); Human Rhinovirus/Enterovirus Not Detected (NOT DETECT); Influenza A/2009-H1 Not Detected (NOT DETECT); Influenza A/H1 Not Detected (NOT DETECT); Influenza A/H3 Not Detected (NOT DETECT); Influenza B Not Detected (NOT DETECT); Mycoplasma pneumoniae Not Detected (NOT DETECT); Parainfluenza Virus 1 Not Detected (NOT DETECT); Parainfluenza Virus 2 Not Detected (NOT DETECT); Parainfluenza Virus 3 Not Detected (NOT DETECT); Parainfluenza Virus 4 Not Detected (NOT DETECT); Respiratory Syncytial Virus Not Detected (NOT DETECT); SARS-Cov-2 (COVID-19), BioFire Not Detected (NOT DETECT)
--- NOTE | 2021-04-22 20:53 | NUR ---
PATIENT IS A NEW AADMIT FROM THE ED ON DAY SHIFT BEFORE SHIFT CHANGE. ALERT TO SELF AND HIS LAST FACILITY, [facility]. BEDREST AND ON 2L O2 NC BASELINE. MANAGER DIGITAL AD OPERATIONS REPORTED SB 48, SLEEPING. CHRONIC EAST PRESENT CHANGED IN ED PER DAY RN. LR STARTED AT 125 mL/HR. RIGHT HAND EDEMA AND LEFT HAND CONTRACTED. BP 108/56. CALL LIGHT IN REACH.
--- NOTE | 2021-04-23 03:05 | NUR ---
SHIFT SUMMARY PATIENT HAD NO ACUTE CHANGES OBSERVED. AXO X TO SELF AND RECALLS [facility] HIS FACILITY, WHEN ASKED CURRENT PLACE. BEDREST. PIV REMAINS INTACT. AMERICAN INDIAN STUDIES PROFESSOR REPORTED SB 48 AT START OF SHIFT SLEEPING AND INTO THE 60'S. CHRONIC EAST PATENT AND DRAINING TO GRAVITY. ON 2L O2 NC. LEFT HAND CONTRACTURE AND RIGHT HAND EDEMA. VSS/AFEBRILE. NO S/SX OF PAIN, SOB, AND N/V. TOOK MEDICATION CRUSHED IN APPLE SAUCE. CALL LIGHT IN REACH. BED IN LOWEST POSITION AND ALARM ACTIVATED. WILL CONTINUE TO MONITOR UNTIL DAY SHIFT NURSE ASSUMES CARE.
--- NOTE | 2021-04-23 05:45 | NUR ---
PATIENT REFUSED LAB DRAW X TWO. LAB WILL TRY AGAIN 07:15.
--- NOTE | 2021-04-23 06:45 | NUR ---
BUTTOCK WOUNDS PHOTOGRAPHED AND IN CHART. WOUND DRESSING FROM [facility].
[2021-04-23 09:01] LABS: Anion Gap 4 mmol/L (6-16); Blood Urea Nitrogen 27 mg/dL (8-24); Bun/Creatinine Ratio 32.6 (12.0-20.0); CO2, Blood 25 mmol/L (21-32); Calcium, Blood 8.3 mg/dL (8.5-10.1); Chloride, Blood 107 mmol/L (98-108); Creatinine, Blood 0.83 mg/dL (0.60-1.20); Glomerular Filtration Rate >60 (60-); Glucose, Blood 82 mg/dL (70-99); Sodium, Blood 136 mmol/L (136-145)
[2021-04-23 09:03] LABS: Potassium, Blood 6.5 mmol/L (3.5-5.5)
[2021-04-23 09:14] LABS: BASOPHILS ABSOLUTE AUTO 0.05 K/mm3 (0.00-0.23); BASOPHILS PERCENT AUTO 0 % (0-2); EOSINOPHILS ABSOLUTE AUTO 0.16 K/mm3 (0.00-0.68); EOSINOPHILS PERCENT AUTO 1 % (0-6); Hematocrit 28.8 % (37.0-53.0); Hemoglobin 8.9 g/dL (13.5-17.5); IMMATURE GRAN ABSOLUTE AUTO 0.04 K/mm3 (0.00-0.10); IMMATURE GRAN PERCENT AUTO 0 % (0-1); LYMPHOCYTES ABSOLUTE AUTO 1.56 K/mm3 (0.84-5.20); LYMPHOCYTES PERCENT AUTO 14 % (21-46); MONOCYTES ABSOLUTE AUTO 0.55 K/mm3 (0.16-1.47); MONOCYTES PERCENT AUTO 5 % (4-13); Mean Corpuscular HGB Conc 30.9 g/dL (31.5-36.5); Mean Corpuscular Volume 91 fL (80-100); Mean Platelet Volume 9.4 fL (9.1-12.4); NEUTROPHILS ABSOLUTE AUTO 9.21 K/mm3 (1.96-9.15); NEUTROPHILS PERCENT AUTO 80 % (41-73); Platelet Count 394 K/mm3 (150-400); RDW Coefficient Variation 14.3 % (11.7-14.2); Red Blood Cell Count 3.18 M/mm3 (4.30-5.90); White Blood Cell Count 11.57 K/mm3 (4.00-11.30)
[2021-04-23 15:29] LABS: Anion Gap 5 mmol/L (6-16); Blood Urea Nitrogen 26 mg/dL (8-24); Bun/Creatinine Ratio 28.6 (12.0-20.0); CO2, Blood 28 mmol/L (21-32); Calcium, Blood 8.7 mg/dL (8.5-10.1); Chloride, Blood 107 mmol/L (98-108); Creatinine, Blood 0.91 mg/dL (0.60-1.20); Glomerular Filtration Rate >60 (60-); Glucose, Blood 148 mg/dL (70-99); Sodium, Blood 140 mmol/L (136-145)
[2021-04-23 17:16] LABS: Vancomycin, Trough 25.4 ug/mL (5.0-10.0)
--- NOTE | 2021-04-24 03:10 | NUR ---
SHIFT SUMMARY PATIENT HAD NO ACUTE CHANGES OBSERVED. AXOX 1-2 AND BEDREST. ON ROOM AIR. PIVS REMAIN INTACT. TAKES MEDICATION WHOLE IN APPLESAUCE. EAST PATENT AND DRAINING TO GRAVITY. RIGHT HAND EDEMA AND LEFT HAND CONTRACTURE. WOUND DRESSING C/D/I. VSS/AFEBRILE. NO S/SX OF PAIN, SOB, AND N/V. CALL LIGHT IN REACH. BED IN LOWEST POSITION. TM.
[2021-04-24 06:51] LABS: Hematocrit 28.8 % (37.0-53.0); Hemoglobin 8.9 g/dL (13.5-17.5); Mean Corpuscular HGB 27.7 pg (26.0-34.0); Mean Corpuscular HGB Conc 30.9 g/dL (31.5-36.5); Mean Corpuscular Volume 90 fL (80-100); Platelet Count 222 K/mm3 (150-400); RDW Coefficient Variation 14.4 % (11.7-14.2); RDW Standard Deviation 47.7 fL (35.1-46.3); Red Blood Cell Count 3.21 M/mm3 (4.30-5.90); White Blood Cell Count 11.48 K/mm3 (4.00-11.30)
[2021-04-24 07:25] LABS: Alanine Aminotransfer (ALT/SGP 30 U/L (12-78); Albumin, Blood 1.8 g/dL (3.4-5.0); Albumin/Globulin Ratio 0.3 (0.8-1.8); Alk Phos 103 U/L (50-136); Anion Gap 6 mmol/L (6-16); Aspartate Aminotrans (AST/SGOT 26 U/L (12-37); Bilirubin, Total 0.2 mg/dL (0.1-1.0); Blood Urea Nitrogen 20 mg/dL (8-24); Bun/Creatinine Ratio 21.5 (12.0-20.0); CO2, Blood 29 mmol/L (21-32); Calcium, Blood 8.7 mg/dL (8.5-10.1); Chloride, Blood 105 mmol/L (98-108); Creatinine, Blood 0.93 mg/dL (0.60-1.20); Ferritin, Serum 761 ng/mL (26-388); Glomerular Filtration Rate >60 (60-); Glucose, Blood 84 mg/dL (70-99); Iron Serum 37 ug/dL (65-175); Percent Saturation 21.6 % (20.0-50.0); Potassium, Blood 3.6 mmol/L (3.5-5.5); Sodium, Blood 140 mmol/L (136-145); Total Iron Binding Capacity 171 ug/dL (250-450); Total Protein, Blood 7.8 g/dL (6.4-8.2); Vancomycin, Random 16.7 ug/mL
--- NOTE | 2021-04-25 03:19 | NUR ---
RESEARCH AGRICULTURAL ENGINEER SUMMARY HAS BEEN RESTING WITH OCCASIONAL INTERRUPTIONS, SAID INTERRUPTIONS INCLUDED CALLING OUT FOR HELP, AT WHICH TIME HE WANTED THE TV CHANGED. REFUSED TO LET STAFF REPOSITION HIM HE WAS "COMFORTABLE". ORIENTED TO CALL LIGHT AND ENCOURAGED TO USE IT. ISOLATION PRECAUTIONS MAINTAINED. CALL LIGHT IN REACH
[2021-04-25 09:25] LABS: Creatinine, Blood 0.92 mg/dL (0.60-1.20)
[2021-04-25] MEDS ORDERED: CEFTRIAXON1 GM/50 M1 IV (14:43)
[2021-04-25] MEDS ORDERED: NITR100CA PO (14:45)
--- NOTE | 2021-04-25 18:16 | NUR ---
PT WAS DISCHARGED ALERT TO SELF VIA GURNEY WITH BELONGINGS AT SIDE. REPORT WAS CALLED INTO [facility] AND GIVEN TO SUSAN DOSS.PT IV'S WERE DC AND PG WAS PLACED FOR IV ABT TX PER JEMISON NURSING STAFF. PT MADE NO COMPLAINTS UPON DC.
== END 2021-04-25 18:07 | disposition home or self-care (01) | DRG 698 ==
LOC: ER 11:34 → MEDS 15:16 → ERHOLD 15:16 → MEDS 18:53
PROVIDERS: Emergency Medicine; Internal Medicine; Pharmacist; ADMIT Family Medicine
PROC: 3E033XZ Introduction of Vasopressor into Peripheral Vein, Percutaneous Approach (ICD-10-PCS; principal; 2021-04-22)
DX: T83.511A Infection and inflammatory reaction due to indwelling urethral catheter, initial encounter (principal); L89.153 Pressure ulcer of sacral region, stage 3; A41.81 Sepsis due to Enterococcus; J18.9 Pneumonia, unspecified organism; G92 Toxic encephalopathy; E23.0 Hypopituitarism; J44.0 Chronic obstructive pulmonary disease with (acute) lower respiratory infection; E87.1 Hypo-osmolality and hyponatremia; N39.0 Urinary tract infection, site not specified; Z20.822 Contact with and (suspected) exposure to COVID-19; R00.1 Bradycardia, unspecified; E11.42 Type 2 diabetes mellitus with diabetic polyneuropathy; R53.1 Weakness; D63.8 Anemia in other chronic diseases classified elsewhere; B96.4 Proteus (mirabilis) (morganii) as the cause of diseases classified elsewhere; I95.9 Hypotension, unspecified; I10 Essential (primary) hypertension; F20.9 Schizophrenia, unspecified; E11.51 Type 2 diabetes mellitus with diabetic peripheral angiopathy without gangrene; E78.5 Hyperlipidemia, unspecified; E03.9 Hypothyroidism, unspecified; F31.9 Bipolar disorder, unspecified; Z99.81 Dependence on supplemental oxygen; Z79.84 Long term (current) use of oral hypoglycemic drugs; Z79.899 Other long term (current) drug therapy; Z86.718 Personal history of other venous thrombosis and embolism; Z86.73 Personal history of transient ischemic attack (TIA), and cerebral infarction without residual deficits; Z98.890 Other specified postprocedural states; Z79.01 Long term (current) use of anticoagulants; Y84.6 Urinary catheterization as the cause of abnormal reaction of the patient, or of later complication, without mention of misadventure at the time of the procedure
CPT/HCPCS: 0202U; 36415; 71045; 80048; 80053; 80202; 81001; 82565; 82728; 82947; 83540; 83550; 83605; 83735; 84443; 84484; 85025; 85027; 87040; 87086; 93005; 93010; 96365; 96367; 96375; 99285-25; A9270; J0696; J1815; J3370; J7050; J7060; J7120; U0004

== ENCOUNTER 2021-05-05 07:45 | Inpatient (IN) | payer OTHER ==
[~2021-05-05] VITALS: Ht 180.3 cm; Wt 90.7 kg
[~2021-05-05 07:45] MED LIST changes: +CEFTRIAXON1 GM/50 M1 IV; +FENTANYL1 EA20 TD; +Prozac20 MG PO
[2021-05-05 08:47] LABS: Source, Urine Catheter
[2021-05-05 08:49] LABS: BASOPHILS ABSOLUTE AUTO 0.07 K/mm3 (0.00-0.23); BASOPHILS PERCENT AUTO 0 % (0-2); EOSINOPHILS PERCENT AUTO 1 % (0-6); Hematocrit 33.8 % (37.0-53.0); Hemoglobin 10.2 g/dL (13.5-17.5); IMMATURE GRAN ABSOLUTE AUTO 0.05 K/mm3 (0.00-0.10); IMMATURE GRAN PERCENT AUTO 0 % (0-1); LYMPHOCYTES ABSOLUTE AUTO 2.15 K/mm3 (0.84-5.20); LYMPHOCYTES PERCENT AUTO 14 % (21-46); MONOCYTES ABSOLUTE AUTO 0.92 K/mm3 (0.16-1.47); MONOCYTES PERCENT AUTO 6 % (4-13); Mean Corpuscular HGB 27.1 pg (26.0-34.0); Mean Corpuscular HGB Conc 30.2 g/dL (31.5-36.5); Mean Corpuscular Volume 90 fL (80-100); Mean Platelet Volume 9.6 fL (9.1-12.4); NEUTROPHILS PERCENT AUTO 79 % (41-73); Platelet Count 397 K/mm3 (150-400); RDW Coefficient Variation 15.4 % (11.7-14.2); RDW Standard Deviation 51.1 fL (35.1-46.3); Red Blood Cell Count 3.76 M/mm3 (4.30-5.90); White Blood Cell Count 15.69 K/mm3 (4.00-11.30)
[2021-05-05 08:51] LABS: Bilirubin, Urine Neg (Neg); Blood, Urine 5+ (Neg); Glucose Qualitative, Urine Neg (Neg); Ketones, Urine Neg (Neg); Leukocyte Esterase, Urine 2+ (Neg); Nitrite, Urine Neg (Neg); Protein, Urine 3+ (Neg); Specific Gravity, Urine 1.015 (1.003-1.022); Urobilinogen, Urine NORM (Normal)
[2021-05-05 09:07] LABS: Alanine Aminotransfer (ALT/SGP 52 U/L (12-78); Albumin, Blood 2.2 g/dL (3.4-5.0); Albumin/Globulin Ratio 0.3 (0.8-1.8); Alk Phos 87 U/L (50-136); Anion Gap 3 mmol/L (6-16); Aspartate Aminotrans (AST/SGOT 27 U/L (12-37); Bilirubin, Total 0.2 mg/dL (0.1-1.0); Blood Urea Nitrogen 32 mg/dL (8-24); Bun/Creatinine Ratio 32.3 (12.0-20.0); CO2, Blood 30 mmol/L (21-32); Calcium, Blood 8.9 mg/dL (8.5-10.1); Chloride, Blood 111 mmol/L (98-108); Creatinine, Blood 0.99 mg/dL (0.60-1.20); Globulin, Blood 6.4 g/dL (2.2-4.0); Glomerular Filtration Rate >60 (60-); Glucose, Blood 144 mg/dL (70-99); Potassium, Blood 3.6 mmol/L (3.5-5.5); Sodium, Blood 144 mmol/L (136-145); Total Protein, Blood 8.6 g/dL (6.4-8.2)
[2021-05-05 09:16] LABS: Appearance, Urine Hazy (Clear); Color, Urine Yellow (P-Yellow); Red Blood Cells, Urine TNTC /hpf (0-2)
[2021-05-05 09:17] LABS: Bacteria Many /hpf; Squamous Epithelial Cells Rare /hpf (Few)
[2021-05-05 10:24] LABS: SARS-Cov-2 (COVID-19) PCR, MMC NEGATIVE (NEGATIVE)
[2021-05-05] MEDS ORDERED: BACL20 PO (15:06)
[2021-05-05] MEDS ORDERED: OLAN7.5 PO (15:07)
[2021-05-05] MEDS ORDERED: XARELTO20 MG PO (15:08)
[2021-05-05] MEDS ORDERED: ACET325 PO (15:11)
[2021-05-05] MEDS ORDERED: VISBIOME 112.51 EACH PO (15:11)
[2021-05-05] MEDS ORDERED: Senna8.6 MG PO (15:11)
--- NOTE | 2021-05-06 02:54 | NUR ---
SEE WOUND DESRIPION/DRESSING CHANGE NOTES
--- NOTE | 2021-05-06 04:08 | NUR ---
0400 O2 SAT RAGING 90-92 NC O2 INCREASED TO 3L. TEMP DECREASED TO 100.1. O410 SAT INCREASED TO 94. CONTINUES TO TAKE ICE CHIPS WITH DIFICULTY VERY SLOWLY.
--- NOTE | 2021-05-06 04:31 | NUR ---
0430 TEMP 101.0. REDNESS NOTED TO BILATERAL LATERAL ANKLES FOAM PROTECTOR REMAIN IN PLACE.
--- NOTE | 2021-05-06 05:18 | NUR ---
SHIFT SUMMARY: PT ROLLED Q2 HR, 2 DRESSINGS CHANGEDX1. WOUNDS REMAIN UNCHANGED. ENCOURAGED COUGH/DEEP WITH OCCASIONAL PRODUCTIVE COUGH OF WHITE FROTHY/MUCUS. URINE LIGHT JEREMÍAS WITH SEDIMENT. PASSING SMALL AMOUNTS OF STOOLX2. ANSWERS QUESTIONS YES AND NO AND SOME SHORT ANSWERS. TAKING ICE CHIP WITH OOUT DIFFICULTY.
[2021-05-06 06:21] LABS: BASOPHILS ABSOLUTE AUTO 0.09 K/mm3 (0.00-0.23); BASOPHILS PERCENT AUTO 0 % (0-2); EOSINOPHILS PERCENT AUTO 0 % (0-6); Hematocrit 33.4 % (37.0-53.0); Hemoglobin 10.3 g/dL (13.5-17.5); IMMATURE GRAN ABSOLUTE AUTO 0.16 K/mm3 (0.00-0.10); IMMATURE GRAN PERCENT AUTO 1 % (0-1); LYMPHOCYTES ABSOLUTE AUTO 2.47 K/mm3 (0.84-5.20); LYMPHOCYTES PERCENT AUTO 10 % (21-46); MONOCYTES ABSOLUTE AUTO 1.19 K/mm3 (0.16-1.47); MONOCYTES PERCENT AUTO 5 % (4-13); Mean Corpuscular HGB 27.5 pg (26.0-34.0); Mean Corpuscular HGB Conc 30.8 g/dL (31.5-36.5); Mean Corpuscular Volume 89 fL (80-100); Mean Platelet Volume 10.2 fL (9.1-12.4); NEUTROPHILS PERCENT AUTO 84 % (41-73); Platelet Count 367 K/mm3 (150-400); RDW Coefficient Variation 15.4 % (11.7-14.2); RDW Standard Deviation 50.5 fL (35.1-46.3); Red Blood Cell Count 3.74 M/mm3 (4.30-5.90); White Blood Cell Count 24.21 K/mm3 (4.00-11.30)
[2021-05-06 06:54] LABS: Alanine Aminotransfer (ALT/SGP 46 U/L (12-78); Albumin/Globulin Ratio 0.3 (0.8-1.8); Alk Phos 89 U/L (50-136); Anion Gap 4 mmol/L (6-16); Aspartate Aminotrans (AST/SGOT 25 U/L (12-37); Bilirubin, Total 0.3 mg/dL (0.1-1.0); Blood Urea Nitrogen 28 mg/dL (8-24); Bun/Creatinine Ratio 27.5 (12.0-20.0); CO2, Blood 28 mmol/L (21-32); Calcium, Blood 8.2 mg/dL (8.5-10.1); Chloride, Blood 114 mmol/L (98-108); Creatinine, Blood 1.02 mg/dL (0.60-1.20); Globulin, Blood 6.2 g/dL (2.2-4.0); Glomerular Filtration Rate >60 (60-); Glucose, Blood 155 mg/dL (70-99); Potassium, Blood 3.5 mmol/L (3.5-5.5); Sodium, Blood 146 mmol/L (136-145); Total Protein, Blood 8.2 g/dL (6.4-8.2)
--- NOTE | 2021-05-06 22:52 | NUR ---
NOTE CHARTING ON INCORECT PT ALL CHATING PRIOR TO 2251 AFTER IS ON CORRECT PT
--- NOTE | 2021-05-07 05:32 | NUR ---
SUMMARY: PT RESTS WHEN UNDISTURBED. LEFT HEEL WITH BRUISING SPOT HEEL PROTECTORS IN PLACE. +3/4 PITTING EDEMA OF RIGHT LEG,+2 TO LEFT. LUNGS UNCHANGED, CONTINUED WITH MOIST COUGH AND IS ABLE TO HANDLE SECREATIONS. SACRAL DECUBITUS REMAINS WITH CALZIME PASTE AND DRESSINGS ARE IN PLACE. PT TURNED Q 2 HOURS ON THE EVEN HOUR. TAKING FOOD AND FLUIDS WITH OUT DIFICULTY. TEMP INCREASED TYLENOL GIVEN WITH A REDUCTION IN TEMPERATURE. NEROLOGICAL STATUS REMAINS UNCHANGED.
[2021-05-07 13:20] LABS: SARS-Cov-2 (COVID-19) PCR, MMC NEGATIVE (NEGATIVE)
[2021-05-07] MEDS ORDERED: ELIQUIS5 M2 PO ×2 (13:43→13:44)
[2021-05-07] MEDS ORDERED: AMOCLA875 PO (13:44)
--- NOTE | 2021-05-07 18:42 | NUR ---
DISCHARGE SUMMARY PT D/C HOME TO [facility] TODAY VIA [facility] W/C. RN TO RN REPORT CALLED. PT D/C HOME WITH ANKLE PROTECTORS IN PLACE, PICC LINE AND 3L/MIN [address], CONFIRMED WITH [facility] RN. GOWN, BRIEF, DRESSING CHANGED PRIOR TO D/C. BED BATH AND SHAMPOO CAP COMPLETED WELL. PT HAPPY ABOUT GOING HOME, SPEAKING IN 3-5 WORD SENTENCES TODAY. NO ORAL SUCTIONING REQUIRED TODAY, PO INTAKE ADEQUATE WITH PUREE DIET & STRAW PRIVILEGES REINSTATED. DECLINES PAIN.
== END 2021-05-07 15:00 | DRG 698 ==
LOC: ER 07:45 → ORSCIP 13:05 → MEDS 13:05 → ORSCIP 14:46
PROVIDERS: Family Medicine; Internal Medicine; Nurse Practitioner Acute Care; ADMIT Internal Medicine
DX: T83.511A Infection and inflammatory reaction due to indwelling urethral catheter, initial encounter (principal); L89.153 Pressure ulcer of sacral region, stage 3; J69.0 Pneumonitis due to inhalation of food and vomit; I26.93 Single subsegmental thrombotic pulmonary embolism without acute cor pulmonale; G92 Toxic encephalopathy; J96.01 Acute respiratory failure with hypoxia; A41.81 Sepsis due to Enterococcus; A41.4 Sepsis due to anaerobes; N39.0 Urinary tract infection, site not specified; Z20.822 Contact with and (suspected) exposure to COVID-19; F20.9 Schizophrenia, unspecified; N40.0 Benign prostatic hyperplasia without lower urinary tract symptoms; F31.9 Bipolar disorder, unspecified; Z86.73 Personal history of transient ischemic attack (TIA), and cerebral infarction without residual deficits; E03.9 Hypothyroidism, unspecified; E78.5 Hyperlipidemia, unspecified; Z86.718 Personal history of other venous thrombosis and embolism; J44.9 Chronic obstructive pulmonary disease, unspecified; Z98.890 Other specified postprocedural states; Z79.899 Other long term (current) drug therapy; E11.51 Type 2 diabetes mellitus with diabetic peripheral angiopathy without gangrene; E11.40 Type 2 diabetes mellitus with diabetic neuropathy, unspecified
CPT/HCPCS: 31720; 36415; 51702; 71045; 71260; 80053; 81001; 83036; 83605; 83735; 84145; 84443; 84484; 85025; 85379; 87040; 87086; 92526; 92610; 93970; 94667; 94668; 94760; 94762; 99285-25; A9270; J0295; J0456; J0696; J1650; J3010; J7030; J7040; J7050; Q9967; U0004

== ENCOUNTER 2021-08-16 12:34 | Inpatient (IN) | payer OTHER ==
[~2021-08-16] VITALS: Ht 188 cm; Wt 94.3 kg
[~2021-08-16 12:34] MED LIST changes: -BACL10 PO
[2021-08-16 13:25] LABS: BASOPHILS PERCENT AUTO 0 % (0-2); EOSINOPHILS ABSOLUTE AUTO 0.18 K/mm3 (0.00-0.68); EOSINOPHILS PERCENT AUTO 1 % (0-6); Hematocrit 48.3 % (37.0-53.0); Hemoglobin 15.9 g/dL (13.5-17.5); IMMATURE GRAN ABSOLUTE AUTO 0.43 K/mm3 (0.00-0.10); IMMATURE GRAN PERCENT AUTO 2 % (0-1); LYMPHOCYTES ABSOLUTE AUTO 1.17 K/mm3 (0.84-5.20); LYMPHOCYTES PERCENT AUTO 4 % (21-46); MONOCYTES ABSOLUTE AUTO 1.25 K/mm3 (0.16-1.47); MONOCYTES PERCENT AUTO 4 % (4-13); Mean Corpuscular HGB 28.6 pg (26.0-34.0); Mean Corpuscular HGB Conc 32.9 g/dL (31.5-36.5); Mean Corpuscular Volume 87 fL (80-100); Mean Platelet Volume 12.6 fL (9.1-12.4); NEUTROPHILS ABSOLUTE AUTO 25.58 K/mm3 (1.96-9.15); NEUTROPHILS PERCENT AUTO 89 % (41-73); Platelet Count 138 K/mm3 (150-400); RDW Coefficient Variation 16.3 % (11.7-14.2); RDW Standard Deviation 52.7 fL (35.1-46.3); Red Blood Cell Count 5.55 M/mm3 (4.30-5.90); White Blood Cell Count 28.71 K/mm3 (4.00-11.30)
[2021-08-16 13:27] LABS: Base Excess Venous -4.2 mmol/L; Bicarbonate Venous 20.9 mmol/L (24.0-30.0); PCO2 Venous 41.3 mmHg (38-42); PO2 Venous 61.7 mmHg (38-42); pH Blood Venous 7.33 (7.34-7.37)
[2021-08-16 13:55] LABS: Albumin, Blood 2.7 g/dL (3.4-5.0); Albumin/Globulin Ratio 0.4 (0.8-1.8); Bilirubin, Total 0.7 mg/dL (0.1-1.0); Bun/Creatinine Ratio 13.6 (12.0-20.0); Calcium, Blood 9.4 mg/dL (8.5-10.1); Creatinine, Blood 2.5 mg/dL (0.60-1.20); Globulin, Blood 6.5 g/dL (2.2-4.0); Potassium, Blood 5.3 mmol/L (3.5-5.5); Total Protein, Blood 9.2 g/dL (6.4-8.2)
[2021-08-16 14:08] LABS: Source, Urine Catheter
[2021-08-16 14:08] LABS: Influenza A, PCR NEGATIVE (NEGATIVE); Influenza B, PCR NEGATIVE (NEGATIVE); Resp Syncytial Virus, PCR NEGATIVE (NEGATIVE); SARS-Cov-2 (COVID-19) PCR, MMC NEGATIVE (NEGATIVE)
[2021-08-16 14:16] LABS: Appearance, Urine Turbid (Clear); Bilirubin, Urine Neg (Neg); Blood, Urine 5+ (Neg); Color, Urine Amber (P-Yellow); Glucose Qualitative, Urine Neg (Neg); Ketones, Urine Neg (Neg); Leukocyte Esterase, Urine 3+ (Neg); Nitrite, Urine Neg (Neg); Protein, Urine 3+ (Neg); Specific Gravity, Urine 1.015 (1.003-1.022); Urobilinogen, Urine NORM (Normal)
[2021-08-16 14:36] LABS: White Blood Cells, Urine TNTC /hpf (0-5)
[2021-08-16 14:37] LABS: Bacteria Many /hpf; Red Blood Cells, Urine 25-50 /hpf (0-2); Squamous Epithelial Cells Not Seen /hpf (Few)
--- NOTE | 2021-08-16 19:38 | NUR ---
SHIFT SUMMARY PT ADMITTED TO UNIT AT APPROXIMATELY 1820 WITH SALINE LOCKED IV. PT NONRESPONSIVE AND NONVERBAL UPON ADMIT. RR ELEVATED AT 24-30/MIN WITH APNEA PERIODS FROM 3-13 SECONDS NOTED Q1 MIN. CH LACTIC RESULT CALLED AT SHIFT CHANGE AND NOTED TO BE 7.6, AGSTEN NOTIFIED VIA PHONE OF LACTIC RESULTS AND PT VITALS AND STATUS-ORDERS PROVIDED BY PHYSICIAN. ER NURSE REPORT NOTED THAT PT RECEIVED 1.6 L NS BOLUS INSTEAD OF DOCUMENTED 3 L IN EMAR. THIS RN NOTIFIED PHYSICIAN AND RECEIVED ORDERS TO CONTINUE NS BOLUS TO ACTUALLY GIVE TOTAL 3 L. THIS RN HUNG BAG OF NS AND STARTED BOLUS. CHARGE NOTIFIED OF PT STATUS. THIS RN GAVE REPORT TO ONCOMING RN. THIS RN CALLED RT TO EVALUATE PT APNEA STATUS AND POSSIBLE TRANSFER. ONCOMING RN IN ROOM EVALUATING PT STATUS WITH SPIRAL RUNNER. PT IS IN BED, CALL LIGHT IN REACH, LOW POSITION. PHYSICIAN AWARE OF PT STATUS.
--- NOTE | 2021-08-16 19:46 | NUR ---
PATIENT TRANSFER: REPORT WAS GIVEN TO APPRAISER ARTSUSAN TRIMBLE AND THE PATIENT IS BEING TRANSFERED DOWN TO PCU-5.
[2021-08-16] MEDS ORDERED: PRAV20 PO (20:53)
[2021-08-16] MEDS ORDERED: BACL10 PO (20:55)
[2021-08-16] MEDS ORDERED: TRAM50 PO (20:57)
--- NOTE | 2021-08-17 05:44 | NUR ---
SHIFT SUMMARY PATIENT ADMITTED TO FLOOR SHORTLY AFTER SHIFT CHANGE FROM MEDICAL FOR WORSENING RESP DISTRESS AND MORE AMS. FOUND TO BE STUPOROUS, BARELY OPENING EYES TO PAINFUL STIMULI. NOT FOLLOWING COMMANDS OR RESPONSIVE. SPONTANEOUS MOVEMENT OF RIGHT ARM IS ONLY MOVEMENT NOTED. DR. DE LOS SANTOS CALLED SHORTLY AFTER TRANSFER TO CONFIRM THE CONTINUATION OF FLUID BOLUS EVEN WITH THE AUDIBLE RHONCHI AND POOR SECRETION CLEARANCE. SHE CAME TO BEDSIDE AND AGREED HE SOUNDED FLUID OVERLOADED. IN A TOUGH SPOT BLOOD PRESSURE WAS STILL SOFT AND CONTINUED BEING TACHY IN THE 120'S. MAINTENENCE FLUIDS STARTED. SISTER WAS CALLED AND UPDATED AND INFORMED RN OF COMFORT CARE STATUS AT HOME FACILTY. PATIENT MADE COMFORT CARE TO GET HIS PROPER PAIN MANAGMENT THIS HAD BEEN HUGE ISSUE IN THE PAST PER SISTER REPORT. DR. DE LOS SANTOS ORDERED STAT CHEST XRAY WHICH SHE SAID DID NOT SHOW SIGNIFICANT CHANGE FROM PREVIOUS SCAN. FENT PATCH REAAPLIED AND ONE TIME DOSE OF DILADID GIVEN TO CATCH UP ON PAIN CONTROL. THIS DID DROP PATIENT BP A BIT BUT VITALS BECOMING MORE STABLE AND PATIENT HR NOW IN THE 90'S AND MAP > 60. ON 4L NC SATING MID 90'S. TACHYPENIC IN THE 20'S. WEAK COUGH AND ORAL SUCTIONING PRN HELPING WITH THIS. Q2H TURNS AND ORAL CARE. REMAINS MOSTLY NON RESPONSIVE ASIDE FROM MINIMAL EYE MOVEMENT WITH STERNAL RUB. EAST PATENT DRAINING TO GRAVITY AND WAS SWITCHED OUT UPON ARRIVAL. JEREMÍAS URINE WITH THICK SEDIMENT NOTED AND POOR OUTPUT COMPARED TO INTAKE. MD AWARE. SISTER NOW AT BEDSIDE. IV ABX INFUSED PER ORDER. MEPILEX TO BUTTOCKS. WILL CONTINUE PLAN OF CARE UNTIL REPORT GIVEN TO MONIQUE DAVIS.
--- NOTE | 2021-08-17 10:25 | NUR ---
Recieved call from Pt's Primary RN Ciera. Pt's sister at bedside and may benefit from Palliative Care visit. Pt has POLST that was completed in April of this year with wishes of DNR and Comfort Measures Only. Pt resting in bed with his eyes closed. Pt appears anxious and painful as evidenced by continued tossing of extremities. Moderate secretions noted. Pt remains with his eyes closed as this RN visited with his sister Carolyn. Engaged in therapeutic listening as Carolyn expresses concerns regarding not establishing financial POA. She reports Pt has money in his bank that can pay for his arrangements. Continued therapeutic listening and validated concerns. Discussed the importance of following Pt's wishes that are outlined on POLST. Educated on comfort care philosophy with V/U made by Carolyn. Carolyn does request antibiotics to be continued. Carolyn is in agreement with plan to move forward with comfort care. Spoke with Spenser Gibbons from Ethics who also agrees wishes outlined on POLST should be followed. Spoke with Dr Smith and discussed case. Dr Smith will continue antibiotics for comfort and is agreeable for comfort measures only. Palliative Care will remain available.
--- NOTE | 2021-08-17 10:44 | NUR ---
UPDATE PHYSICIAN AT BEDSIDE THIS AM. PT'S POA UNSURE IF COMFOT CARE IS RIGHT CHOICE AT THIS TIME. PALLIATIVE CARE NOTIFIED. PALLIATIVE CARE AT BEDSIDE. ETHICS CONSULT PLACED. PT STILL ON COMFORT CARE AT THIS TIME. PLAN TO CONT ANTIBIOTICS AND COMFORT CARE MEDS AT THIS TIME. SUCTIONED PT, REPOSITIONED Q 2 HRS AND PROVIDED WITH PAIN MEDICATIONS WHEN APPEARING UNCOMFORTABLE. WILL CONT TO MONITOR. FAMILY AT BEDSIDE.
--- NOTE | 2021-08-17 13:50 | NUR ---
Spiritual care visit conducted. Patient barely opens his eyes during my visit and does not speak. I provide a calming presence and prayer. Patient shows signs of resting peacefully. I will continue to remain available to patient and family.
--- NOTE | 2021-08-17 13:55 | NUR ---
Ethics consultation service requested. Clarification regarding the principals advance care planning instrument and the use of antibiotics given his stipulated preference for non-aggressive treatment. POL reviewed and discussed with rubi stakeholders. Established: antibiotic therapies are not contraindicated for comfort measures only patients, as long as they are being applied for palliative or prophylactic benefit. Also, this is congruent with the principals documented choice. Thank you for this consult. Spenser Gibbons ThD
--- NOTE | 2021-08-17 17:12 | NUR ---
SHIFT SUMMARY PT ON COMFORT CARE. PT TURNED Q 2 HRS. ORAL CARE Q 4 HRS AND NEEDED. PT MEDICATED FOR PAIN AND DYSPNEA, SEE EMAR AND EHR. FAMILY AT BEDSIDE. PALLIATIVE CARE AT BEDSIDE THIS AM. SEE NOTES. PER FAMILY REQUEST PT STILL RECIEVING ABX, IV FLUIDS AND OXYGEN THERAPY. PT CURRENLTY ON 5 L OF OXYGEN. WILL CONT TO MONITOR UNTIL REPORT GIVEN TO NIGHTSHIFT RN.
--- NOTE | 2021-08-17 18:23 | NUR ---
UPDATE FAMILY AT BEDSIDE. PT SUCTIONED PER FAMILY REQUEST.
--- NOTE | 2021-08-17 18:49 | NUR ---
UPDATE PT WARM TO THE TOUCH. TEMP 99.9. PT PROVIDED WITH FAN AND COOL RAGS.
--- NOTE | 2021-08-17 22:25 | NUR ---
luis report from Alexandra RN in PCU in PT with multiple medical problems who was put on Comfort care today, he has Sepsis pneumonia UTI. Sister was in PCU visiting & is POA. PT has sadler cath 5 l nc secretions despite scopolimine patch & pain despite fent patch 12.5 mg req 10 mg roxinol with helpful effect reported. PER POA request IV fluids & IV abx for now. Await transfer.
--- NOTE | 2021-08-17 23:36 | NUR ---
PATIENT TRANSFERRED FROM PCU 05 TO ROOM 356. FAMILY NOTIFIED. REPORT GIVEN TO PETER GARSIA.
--- NOTE | 2021-08-17 23:40 | NUR ---
PT recieved from PCU with IVF & IV abx running 5 l oxygen NC. Comfort care PT has scopolimine patch on behind ear & has baseline fent patch 12.5 mcg. Currently denies pain.
--- NOTE | 2021-08-18 02:46 | NUR ---
oral care oral suction for oral secretions eye care cath care. IV fluid & IV abx infusing
--- NOTE | 2021-08-18 09:18 | NUR ---
PATIENT ON COMFORT CARE. PATIENT REQUIRED SUCTIONING AND MEDICATED FOR EXCESS SECRETIONS. PATIENT REPEATEDLY POINTING TO CHEST AND MEDICATED PATIENT FOR AIR HUNGER. WILL CONTINUE TO MONITOR.
--- NOTE | 2021-08-18 10:41 | NUR ---
Comfort Care Visit Pt resting in bed with his eyes closed. Pt briefly opens his eyes to verbal stimuli then closes them. Moderate secretions noted. Pt appears comfortable with no S/S of distress at this time. Spoke with Pt's Primary RN Pasha and discussed case. Pt has scopolamine patch and Pasha is offering Atropine drops for secretions. Spoke with Dr Hurt and discussed case. D/C NS at 100 mls per hour and ordered NS KVO per V/O from Dr Hurt. Palliative Care will remain available.
--- NOTE | 2021-08-18 10:49 | NUR ---
PATIENT ON COMFORT CARE. PATIENT RESTING COMFORTABLY ON LEFT SIDE. CHAPLIAN AT BEDSIDE PLAYING GUITAR FOR PATIENT. WILL CONTINUE TO MONITOR.
--- NOTE | 2021-08-18 12:34 | NUR ---
PATIENT ON COMFORT CARE. PATIENT RESTING ON SIDE. ORAL CARE AND SUCTIONING PROVIDED. IV FLUIDS RUNNING KVO AND ANTIBIOTICS FINISHED.
--- NOTE | 2021-08-18 13:39 | NUR ---
Spiritual care visit conducted. Patient is lying on his side and has his eyes open. Patient is non-verbal while I am in the rm. I provide close to 30 minutes of soft therapeutic type guitar playing as well as scripture reading and prayer. Patient is awake the entire visit and shows facial expressions of being relaxed and pain free. I will continue to remain available to patient and family.
--- NOTE | 2021-08-18 13:40 | NUR ---
Case Conference Note Received report Pt's sister is requesting a phone call. Called and spoke with Pt's sister Carolyn. Provided update and answered questions. Continued therapeutic listening and validated concerns. Carolyn reports plan to come visit Pt this afternoon and will consider stopping antibiotics. Palliative Care will remain available.
--- NOTE | 2021-08-18 14:35 | NUR ---
COMFORT CARE PATIENT RESTING ON RIGHT SIDE. EXCESS SECRETIONS, ORAL SUCTIONING AND MEDICATED WITH ATROPINE DROPS. FLUIDS RUNNING TKO. EAST DRAINING DARK JEREMÍAS URINE. MOISTURIZER APPLIED TO LIPS.
--- NOTE | 2021-08-18 17:37 | NUR ---
COMFORT CARE PATIENT RESTING ON SIDE WITH SISTER AT BEDSIDE. NO S/S OF DISCOMFORT. IV FLUIDS RUNNING TKO AND ANTIBIOTICS RUNNING.
--- NOTE | 2021-08-18 18:12 | NUR ---
COMFORT CARE PATIENT REPOSITIONED TO LEFT SIDE. ORAL CARE AND SUCTIONING PROVIDED. PATIENTS BREATHING SOUNDS WET AND LABORED. MEDICATED PER MAR. PATIENT FELT WARM. WIPED PATIENTS EYE AND FACE WITH A COOL WASH CLOTH. PLACED COOL WASH CLOTH ON PATIENTS FOREHEAD. EAST CATHETER PATENT AND DRAINING DARK JEREMÍAS URINE. PROVIDED CATHETER CARE AND ATTENDS CHANGED.
--- NOTE | 2021-08-18 18:30 | NUR ---
SHIFT SUMMARY PATIENT ON COMFORT CARE. BARELY OPENING EYES. NONRESPONSIVE AND DOES NOT FOLLOW COMMANDS. PATIENT WILL OCCASIONALLY MOVE RIGHT HAND POINTING TOWARDS HIS CHEST. NO OTHER MOVEMENTS. SISTER SPOKE WITH PALLATIVE CARE TODAY ABOUT PATIENTS COMFORT CARE TREATMENT AND STATED SHE IS MORE AT EASE OF WHAT IS GOING ON. SISTER WAS AT BEDSIDE THIS LATE AFTERNOON. PATIENT RECEIVING ANTIBIOTICS, FLUID TKO, AND 5L NC PER FAMILY REQUEST. MEDICATED FOR DYSPNEA AND SECRETIONS. WILL CONTINUE TO MONITOR.
--- NOTE | 2021-08-19 04:40 | NUR ---
SHIFT SUMMARY PT RECEIVED ON COMFORT CARE, 5L NC. OT ON CONTACT ISOLATION .PT IS BARELY RESPONSIVE, DOESNOT FOLLOW COMMANDS. PT WAS REPOSITIONNED NEEDED. MEDS WERE GIVEN NEEDED FOR DYPSNEA AND ANXIETY.WILL CONTINUE TO MONITOR.
--- NOTE | 2021-08-19 08:15 | NUR ---
PT COMFORTABLY SLEEPING AT THIS TIME. BED IN LOWEST POSITION AND CALL LIGHT IS IN REACH.
--- NOTE | 2021-08-19 11:18 | NUR ---
PT SUCTIONED AT THIS TIME.
--- NOTE | 2021-08-19 15:30 | NUR ---
Spritual care visit conducted. Patient is sitting up in bed and alert. Patient does not speak but is able to indicate "yes" and "no" by blinking once for yes and katie for no. Patient's sister, Carolyn is bedside as well as his cousin Justina. 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 While is family was laughing pt even smiled. Patient agreed to having a prayer said for him which I gladly provided. I also provided therapeutic listening for Carolyn as she vents some of her frustrations regarding the SNF he has been lodged in and the hospital regarding his pain patch and his mental illness. She also feels the weight of making medical decsions that she wants the pt to make. I provide gentle residential treatment counselor which seems to result in the family being more at peace with the patient's comfort care status. I will continue to help guide the family and patient to the beneficial plan of care moving forward.
--- NOTE | 2021-08-19 15:44 | NUR ---
FAMILY TO BEDSIDE. FAMILY PROVIDED ORAL CARE TO PATIENT. PATIENT IS CURRENTLY SLEEPING COMFORTABLY IN BED.
--- NOTE | 2021-08-19 16:44 | NUR ---
Comfort Care Visit Pt resting in bed with his eyes closed upon arrival. Pt appears comfortable with no S/S of distress at this time. Moderate secretions noted. Sister Carolyn along with other family members at bedside. Offered therapeutic listening as Carolyn expresses concerns whether Pt wanted to be comfort care. Carolyn appears to be struggling with acceptance. Continued therapeutic listening and validated concerns. Carolyn expresses appreciation and ended visit to allow family alone time with Pt. Spoke with Primary RN Kristan and discussed case. Palliative Care will remain available.
[2021-08-19] MEDS ORDERED: FENTANYL1 EA20 TD (17:12)
--- NOTE | 2021-08-19 18:04 | NUR ---
SHIFT SUMMARY PT ON COMFORT CARE WITH FAMILY PRESENT. PT SUCTIONED FOR SECRETIONS. PT REPOSITIONED AND TOLERATED IT WELL. PT HAS MOSTLY BEEN SLEEPING TODAY AND IS NOT VERBALLY RESPONSIVE. EAST PATENT AND DRAINING TO GRAVITY. ANTIBIOTICS DISCONTINUED. PT CURRENTLY RESTING IN BED WITH HIS CALL LIGHT IN REACH.
--- NOTE | 2021-08-20 04:24 | NUR ---
SHIFT SUMMARY PT REMAINS ON COMFORT CARE. PT WAS REPOSITIONNED AND MEDICATED NEEDED. EAST REMAINS PATENT AND DRAINING.PT STILL VERBALLY NON RESPONSIVE .OLD FENTANYL WAS REMOVED ON RIGHT ARM AND NEW ONE PLACED ON LEFT ARM. WILL CONTINUE TO MONITOR UNTIL DAY SHIFT ARRIVES.
--- NOTE | 2021-08-20 10:36 | NUR ---
PT CURRENTLY RESTING IN BED WITH HIS CALL LIGHT IN REACH.
--- NOTE | 2021-08-20 18:33 | NUR ---
SHIFT SUMMARY PT REMAINS ON COMFORT CARE. FLUIDS RUNNING TKO PER FAMILY'S REQUEST. MORE EDEMA NOTED AND ADDITIONAL SECRETIONS DUE TO THE ADDITIONAL FLUID BUT FAMILY WANTS IT CONTINUED. PT MORE RESPONSIVE TODAY AND WAS ABLE TO EAT AND DRINK SOME TODAY. CURRENTLY RESTING COMFORTABLY IN BED WITH HIS CALL LIGHT IN REACH.
--- NOTE | 2021-08-21 06:23 | NUR ---
SHIFT SUMMARY ASSUMED CARE AT 1900 AND PT WAS ON COMFORT CARE.PT WAS STILL UNRESPONSIVE, TACHYPNEIC.PT WAS MEDICATED NEEDED. AROUND 0515, DERRICK FOLLOWER ENTERED THE ROOM TO CLEAN PT AND CALLED ME IN.PT FOUND PULSELESS,NO RESPIRATION AND NOT RESPONSIVE TO VERBAL AND TACTILE STIMULATION. VITALS UNABLE TO BE OBTAINED.CHARGE NURSE BELGICA WAS NOTIFIED. I ATTEMPTED TO NOTIFY PT'S SISTER LORI, BUT THE CALL WAS DISCONNECTED DURING OUR CONVERSATION-SHE DID VERBALIZE HER UNDERSTANDING-REGARDING PATIENT'S EXPIRATION. I STILL TRIED TO CALL BACK MULTIPLE TIMES WITH NO ANSWER, VOICEMAIL LEFT.
--- NOTE | 2021-08-21 07:14 | NUR ---
DR BOJORQUEZ NOTIFIED OF PATIENT EXPIRATION.
--- NOTE | 2021-08-21 08:41 | NUR ---
ATTEMPTED TO CALL SISTER ANGELICA AGAIN THIS AM AT APROX 0715 AT [facility] PHONE THAT IS NO LONGER IN SERVICE WELL [phone] GOES STRAIGHT TO VOICEMAIL AND UNABLE TO GET AHOLD OF HER. AT 0827 DONATION LINE CALLED BACK AND REPORTED PT IS NOT A DONOR AND OK TO RELEASE PATIENT. ATTEMPTED TO CALL SISTER AGAIN AND CONTINUES TO GO STRAIGHT TO VOICEMAIL. VOICEMAIL LEFT THAT PT BEING RELEASED. CALLED FOR NEXT UP MORTUARY WHICH IS DASHA SHAH OF THE [facility] NOTIFIED FOR PICKUP.
--- NOTE | 2021-08-21 09:10 | NUR ---
SISTER ANGELICA CALLED BACK AND REPORTS HER PHONE WAS ON AIRPLANE MODE. SHE REPORTS PT WAS TO GO TO [facility] IN [place]. CALLED AND CANCELLED DASHA SHAH OF THE [facility] AND [facility] [place] NOTIFIED. SISTER ARJUN.
--- NOTE | 2021-08-21 11:28 | NUR ---
PT WAS PICKED UP BY [facility] PER SISTERS REQUEST. CATHY SORIA WAS THE TRANSPORTER. NO BELONGINGS IN ROOM OR ON PT.
== END 2021-08-21 05:15 | DRG 698 ==
LOC: ER 12:34 → ERHOLD 15:14 → MEDS 15:14 → PCU 15:14 → MEDS 18:06 → PCU 19:41 → MEDS 08-17 23:30
PROVIDERS: Emergency Medicine; ADMIT Hospitalist
DX: T83.511A Infection and inflammatory reaction due to indwelling urethral catheter, initial encounter (principal); A41.4 Sepsis due to anaerobes; N17.0 Acute kidney failure with tubular necrosis; R65.21 Severe sepsis with septic shock; J69.0 Pneumonitis due to inhalation of food and vomit; Z66 Do not resuscitate; Z20.822 Contact with and (suspected) exposure to COVID-19; Z51.5 Encounter for palliative care; E11.40 Type 2 diabetes mellitus with diabetic neuropathy, unspecified; F20.9 Schizophrenia, unspecified; D69.6 Thrombocytopenia, unspecified; G89.29 Other chronic pain; F31.9 Bipolar disorder, unspecified; E03.9 Hypothyroidism, unspecified; R78.5 Finding of other psychotropic drug in blood; E11.51 Type 2 diabetes mellitus with diabetic peripheral angiopathy without gangrene; E11.621 Type 2 diabetes mellitus with foot ulcer; Z74.01 Bed confinement status; L89.612 Pressure ulcer of right heel, stage 2; B96.1 Klebsiella pneumoniae [K. pneumoniae] as the cause of diseases classified elsewhere; E29.1 Testicular hypofunction; J44.9 Chronic obstructive pulmonary disease, unspecified; Z87.891 Personal history of nicotine dependence; Z86.73 Personal history of transient ischemic attack (TIA), and cerebral infarction without residual deficits; Z86.718 Personal history of other venous thrombosis and embolism; Z98.890 Other specified postprocedural states; Z79.01 Long term (current) use of anticoagulants; Z79.899 Other long term (current) drug therapy; Y84.6 Urinary catheterization as the cause of abnormal reaction of the patient, or of later complication, without mention of misadventure at the time of the procedure
CPT/HCPCS: 0241U; 36415; 51702; 71045; 80053; 81001; 82803; 82947; 83605; 85025; 87040; 87077; 87086; 87186; 93005; 93010; 96365; 96375; 99285-25; A9270; J0696; J1170; J1940; J1956; J2060; J2543; J7030; J7040

== ENCOUNTER → 2021-08-16 | Outpatient (CLI) | payer OTHER ==
[~2021-08-16] MED LIST changes: +BACL10 PO; +BACL20 PO; +ELIQUIS5 M2 PO; +OLAN5 PO; +Senna8.6 MG PO; +VISBIOME 112.51 EACH PO; +XARELTO20 MG PO
[2021-08-16 13:46] LABS: Source, Urine Catheter
[2021-08-16 14:11] LABS: Hematocrit 46.6 % (37.0-53.0); Hemoglobin 15.1 g/dL (13.5-17.5); Mean Corpuscular HGB 28.6 pg (26.0-34.0); Mean Corpuscular HGB Conc 32.4 g/dL (31.5-36.5); Mean Corpuscular Volume 88 fL (80-100); Mean Platelet Volume 11.5 fL (9.1-12.4); Platelet Count 168 K/mm3 (150-400); RDW Coefficient Variation 16.4 % (11.7-14.2); RDW Standard Deviation 53.3 fL (35.1-46.3); Red Blood Cell Count 5.28 M/mm3 (4.30-5.90); White Blood Cell Count 37.53 K/mm3 (4.00-11.30)
[2021-08-16 14:22] LABS: Appearance, Urine Turbid (Clear); Bilirubin, Urine Neg (Neg); Blood, Urine 5+ (Neg); Color, Urine Amber (P-Yellow); Glucose Qualitative, Urine Neg (Neg); Ketones, Urine Neg (Neg); Leukocyte Esterase, Urine 3+ (Neg); Nitrite, Urine Neg (Neg); Protein, Urine 3+ (Neg); Specific Gravity, Urine 1.015 (1.003-1.022); Urobilinogen, Urine NORM (Normal); pH, Urine 6.5 (5.0-8.0)
[2021-08-16 14:26] LABS: White Blood Cells, Urine TNTC /hpf (0-5)
[2021-08-16 14:27] LABS: Bacteria Many /hpf; Red Blood Cells, Urine 25-50 /hpf (0-2); Squamous Epithelial Cells Not Seen /hpf (Few)
== END | disposition home or self-care (01) ==
LOC: EDSTATUS 10:45 → LAB UVN 11:00
PROVIDERS: Internal Medicine
DX: J96.01 Acute respiratory failure with hypoxia (principal); J44.9 Chronic obstructive pulmonary disease, unspecified; J18.1 Lobar pneumonia, unspecified organism; N39.0 Urinary tract infection, site not specified
CPT/HCPCS: 81001; 85027; 87077; 87086; 87186